=== PATIENT | male | born 1955 | race Native Hawaiian/Other Pacific Islander ===

== ENCOUNTER → 2022-08-22 | Outpatient (CLI) | payer MEDICARE ==
--- NOTE | 2022-08-22 15:49 | US ---
EXAMINATION TYPE: US liver DATE OF EXAM: 08/22/2022 COMPARISON: NONE CLINICAL HISTORY: K74.60 UNSPECIFIED CIRRHOSIS OF LIVER. abnormal ct about 2-3 months ago that showed enlarged liver per pt TECHNIQUE: Multiple sonographic images of the right upper quadrant are obtained. FINDINGS: EXAM MEASUREMENTS: Liver Length: 21.0 cm Gallbladder Wall: 0.2 cm CBD: 0.5 cm Right Kidney: 11.8 x 5.7 x 5.1 cm DIRECTOR RELIGIOUS EDUCATION NOTES:some exam limitations due to overlying bowel gas Pancreas: Visualized portions heterogeneous, but otherwise unremarkable. Tail not well seen. Liver: Liver appears enlarged with a slightly coarsened echotexture. There is a 2.5 x 2.2 x 2.1 cm h ypoechoic solid mass in segment 5 just anterior to the gallbladder. Gallbladder: wnl Evidence for sonographic Rodriguez's sign: no CBD: wnl Right Kidney: wnl IMPRESSION: Hepatomegaly and coarsened liver echotexture. 2.5 cm hypoechoic solid mass within segment 5 anterior to the gallbladder. Single phase CT abdomen and pelvis was performed at [facility] on 01/08/2022 and these images are reviewed. The mass was present at that time. However, the liver demonstrates a cirrhotic m orphology with hepatomegaly and nodular contour. As well, there is evidence of portal hypertension wi th mild splenomegaly and esophageal varices. In addition to hepatology consultation, this mass should be evaluated with a dedicated liver MRI.
== END | disposition home or self-care (01) ==
LOC: RADUSWWP 14:30
PROVIDERS: ATTEND Internal Medicine Gastroenterology
DX: K74.60 Unspecified cirrhosis of liver (principal); R16.2 Hepatomegaly with splenomegaly, not elsewhere classified; I85.10 Secondary esophageal varices without bleeding; K76.6 Portal hypertension
CPT/HCPCS: 76705

== ENCOUNTER → 2022-10-14 | Outpatient (CLI) | payer MEDICARE ==
[2022-10-14 22:43] LABS: Prothrombin Time 11.3 sec (9.9-11.9)
[2022-10-14 23:14] LABS: African American GFR (CKD) 107.1 (60.0-200.0); Albumin 4.5 g/dL (3.8-4.9); Albumin/Globulin Ratio 1.8 (1.60-3.17); BUN/Creat Ratio 15.63 Ratio (12.00-20.00); Blood Urea Nitrogen 12.5 mg/dL (9.0-27.0); Calcium 9.7 mg/dL (8.7-10.3); Globulin 2.5 g/dL (1.6-3.3); Non-African American GFR(CKD) 92.4 (60.0-200.0); Potassium 4.2 mmol/L (3.5-5.5); Total Bilirubin 1.1 mg/dL (0.30-1.20)
[2022-10-15 01:44] LABS: Basophils # (A) 0.09 X 10*3/uL (0.00-0.10); Basophils % (A) 1.3 %; Eosinophils # (A) 0.11 X 10*3/uL (0.04-0.35); Eosinophils % (A) 1.6 %; HCT 39.7 % (39.6-50.0); HGB 12.9 g/dL (13.0-17.0); Immature Grans, Automated 1.7 %; MCH 30.7 pg (27.0-32.0); MCHC 32.5 g/dL (32.0-37.0); MCV 94.5 fL (80.0-97.0); Monocytes # (A) 0.75 X 10*3/uL (0.20-1.00); Monocytes % (A) 10.9 %; NRBC Per 100 WBC 0 /100 WBCS (0.0-0.0); Neutrophils # (A) 4.69 X 10*3/uL (1.80-7.70); Neutrophils % (A) 68.5 %; Platelet Count 60 X 10*3/uL (140-440); RDW 14.6 % (11.5-14.5); WBC 6.86 X 10*3/uL (4.50-10.00)
[2022-10-15 01:46] LABS: Immature Platelet Fraction 23.5 % (1.1-6.1); RBC Morphology NORMAL
== END | disposition home or self-care (01) ==
LOC: LABWHC1 14:15
PROVIDERS: ATTEND Nurse Practitioner Family
DX: K74.60 Unspecified cirrhosis of liver (principal)
CPT/HCPCS: 36415; 80053; 82105; 85025; 85610

== ENCOUNTER → 2023-04-16 | Outpatient (CLI) | payer MEDICARE ==
--- NOTE | 2023-04-16 09:28 | US ---
EXAMINATION TYPE: US liver DATE OF EXAM: 04/16/2023 COMPARISON: US & MRI CLINICAL INDICATION: Male, 67 years old with history of K74.60 UNSPECIFIED CIRRHOSIS OF LIVER; Known Cirrhosis TECHNIQUE: Multiple sonographic images of the right upper quadrant are obtained. 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 Cirrhotic appearance to the liver. 2. Adenomyomatosis of the gallbladder wall with no evidence of cholelithiasis or cholecystitis. 3. No evidence of biliary ductal dilation. 4. No evidence of right-sided hydronephrosis.
== END | disposition home or self-care (01) ==
LOC: RADUSWWP 08:55
PROVIDERS: ATTEND Internal Medicine Gastroenterology
DX: K74.60 Unspecified cirrhosis of liver (principal); K82.8 Other specified diseases of gallbladder
CPT/HCPCS: 76705

== ENCOUNTER → 2023-04-17 | Outpatient (CLI) | payer MEDICARE ==
[2023-04-17 17:01] LABS: Basophils # (A) 0 X 10*3/uL (0.00-0.10); Basophils % (A) 0 %; Elliptocytes 2+; Eosinophils # (A) 0.01 X 10*3/uL (0.04-0.35); Eosinophils % (A) 0.5 %; HCT 27.2 % (39.6-50.0); HGB 8.2 d/dL (13.0-17.0); Immature Platelet Fraction 14.9 % (1.1-6.1); Lymphocytes # (A) 0.78 X 10*3/uL (0.90-5.00); Lymphocytes % (A) 35.9 %; MCH 33.3 pg (27.0-32.0); MCHC 30.1 d/dL (32.0-37.0); MCV 110.6 FL (80.0-97.0); Macrocytosis (M) 2+; Mean Platelet Volume 12.4 FL (9.5-12.2); Monocytes # (A) 0.12 X 10*3/uL (0.20-1.00); Monocytes % (A) 5.5 %; NRBC Per 100 WBC 0 X 10*3/uL (0.00-0.01); Neutrophils # (A) 1.17 X 10*3/uL (1.80-7.70); Platelet Count 52 X 10*3/uL (140-440); RBC 2.46 X 10*6/uL (4.40-5.60); WBC 2.17 X 10*3/uL (4.50-10.00)
[2023-04-17 18:02] LABS: ALT 139 U/L (10-49); AST 175 U/L (14-35); Albumin 4.4 d/dL (3.8-4.9); Alkaline Phosphatase 203 U/L (41-126); BUN/Creat Ratio 21.89 Ratio (12.00-20.00); Blood Urea Nitrogen 19.7 mg/dL (9.0-27.0); Calcium 9.6 mg/dL (8.7-10.3); Carbon Dioxide 21.5 mmol/L (21.6-31.8); Chloride 99 mmol/L (96-109); Globulin 2.2 d/dL (1.6-3.3); Glucose 310 mg/dL (70-110); Potassium 4.8 mmol/L (3.5-5.5); Sodium 132 mmol/L (135-145); Total Bilirubin 1.2 mg/dL (0.3-1.2); Total Protein 6.6 d/dL (6.2-8.2)
== END | disposition home or self-care (01) ==
LOC: LABWHC1 09:55
PROVIDERS: ATTEND Internal Medicine Gastroenterology
DX: K74.60 Unspecified cirrhosis of liver (principal)
CPT/HCPCS: 36415; 80053; 82105; 85025

== ENCOUNTER 2024-06-09 11:19 | Inpatient (IN) | payer MEDICARE ==
[2024-06-09] MEDS ORDERED: ONDANSETRON 4 MG/2 ML VIAL IVP PRN ×2 (16:55→18:24)
[2024-06-09] MEDS ORDERED: ACETAMINOPHEN TAB 325 MG TAB PO PRN (16:55)
[2024-06-09] MEDS ORDERED: NALOXONE 0.4 MG/ML 1 ML VIAL IV PRN (16:55)
[2024-06-09] MEDS ORDERED: ALPRAZolam 0.25 MG TAB PO PRN (20:36)
[2024-06-09] MEDS: TEMAZEPAM 15 MG CAP PO SCH (20:59)
[2024-06-09] MEDS: MULTIVITAMINS, THERA 1 EACH TAB PO SCH (20:59)
[2024-06-09] MEDS: TAMSULOSIN 0.4 MG CAP.ER.24H PO SCH (21:00)
[2024-06-09] MEDS: PANTOPRAZOLE 40 MG TABLET PO SCH (21:00)
[2024-06-10 06:09] LABS: Glucose,Whole Blood 109 mg/dL (70-110)
[2024-06-10 07:32] LABS: Anisocytosis Moderate; HCT 21.4 % (39.0-53.0); Hypochromasia Moderate; MCH 33.7 pg (25.0-35.0); MCHC 32.8 g/dL (31.0-37.0); MCV 102.8 fL (80.0-100.0); Macrocytosis Moderate; Mean Platelet Volume 13.9; Poikilocytosis Marked; RBC 2.08 m/uL (4.30-5.90); RDW 23.8 % (11.5-15.5)
[2024-06-10] MEDS: allopurinoL 300 MG TAB PO SCH (07:58)
[2024-06-10] MEDS: PANTOPRAZOLE 40 MG/10 ML VIAL IVP SCH (07:58)
[2024-06-10] MEDS: THIAMINE 100 MG TAB PO SCH (07:58)
[2024-06-10 08:05] LABS: ALT 67 U/L (4-49); AST 98 U/L (17-59); African American GFR (CKD) >90 (>60 ml/min/1.73 sqM); Albumin 2.2 g/dL (3.5-5.0); Alkaline Phosphatase 171 U/L (38-126); Anion Gap 1 mmol/L; Blood Urea Nitrogen 7 mg/dL (9-20); Calcium 7.5 mg/dL (8.4-10.2); Carbon Dioxide 25 mmol/L (22-30); Chloride 108 mmol/L (98-107); Glucose 121 mg/dL (74-99); Magnesium 1.8 mg/dL (1.6-2.3); Non-African American GFR(CKD) >90 (>60 ml/min/1.73 sqM); Potassium 3.4 mmol/L (3.5-5.1); Sodium 134 mmol/L (137-145); Total Bilirubin 2.7 mg/dL (0.2-1.3); Total Protein 4.4 g/dL (6.3-8.2)
[2024-06-10 08:16] LABS: WBC 0.3 k/uL (3.8-10.6)
[2024-06-10 08:35] LABS: Platelet Count 16 k/uL (150-450)
[2024-06-10 08:36] LABS: Polychromasia Present
[2024-06-10 08:44] LABS: INR 1.1 (<1.2); Prothrombin Time 12.2 sec (10.0-12.5)
[2024-06-10 11:43] LABS: Glucose,Whole Blood 160 mg/dL (70-110)
--- NOTE | 2024-06-10 11:43 | P.CONS ---
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 Apparently patient was at [facility] admitted with anemia. Reportedly general surgery was consulted however declined to do any endoscopic evaluation due to patient's history of liver cirrhosis and esophageal varices. They were recommending transfer to [facility] however there were no beds available. Patient was transferred here and asked if gastroenterology could see patient for possible endoscopy. He states that he has been having black stools for last several days. He denies any abdominal pain, nausea or vomiting. No hematemesis. WBC 0.3 hemoglobin 7.0 platelet count 16,000 sodium 134 potassium 3.4 BUN 7 creatinine 0.5 total bilirubin 2.7 AST 98 ALT 67 alkaline phosphatase 171 Last EGD and colonoscopy done here was on 09/26/2023 for elective upper endoscopy as well as colonoscopy as part of evaluation of cirrhosis of the liver and screening for esophageal varices and screening for colon cancer. Upper endoscopy revealed severe portal hypertensive gastropathy and small esophageal varices. Colonoscopy revealed transverse colon polyp status post polypectomy and scattered sigmoid diverticulosis Review of Systems REVIEW OF SYSTEMS: CARDIOPULMONARY: No chest pain or shortness of breath. Gastrointestinal: Abdominal pain. No nausea or vomiting. No hematemesis, coffee-ground emesis. No rectal bleeding, patient has been reporting black stools. GENITOURINARY: No dysuria or hematuria. MUSCULOSKELETAL: Reports normal range of motion. SKIN: No rashes. No jaundice. ENDOCRINE: No chills, fevers. No excessive weight gain or loss. No polydipsia or polyuria. PSYCHIATRIC: Unremarkable. NEUROLOGY: No change in mental status. Denies dizziness, headache. ENT: Vision unremarkable. CONSTITUTIONAL: No recent weight loss. No fever, chills, night sweats. Past Medical History Past Medical History: Cancer, Hypertension Additional Past Medical History / Comment(s): cirrhosis of liver, skin cancer. , low platelets-follows with Dr. Mensah., BPH, cyst removed from tooth and taking antibiotic for gum infection. Myleopastic dysplasia syndrome History of Any Multi-Drug Resistant Organisms: None Reported Past Surgical History: Prostate Surgery Additional Past Surgical History / Comment(s): green light laser surgery for prostate Past Anesthesia/Blood Transfusion Reactions: No Reported Reaction Past Psychological History: No Psychological Hx Reported Smoking Status: Former smoker Past Alcohol Use History: Daily Additional Past Alcohol Use History / Comment(s): smoked from 10 yrs old till 21 yrs old. drinks 4 beers/day. Past Drug Use History: Marijuana Additional Drug Use History / Comment(s): current marijuana use - Past Family History Sister(s) Family Medical History: Cancer Additional Family Medical History / Comment(s): one sister breast cancer, 2nd sister having testing done. Medications and Allergies Home Medications Medication Instructions Recorded Confirmed Type ALPRAZolam [Xanax] 0.25 mg PO TID PRN 06/09/24 06/09/24 History Ciprofloxacin HCl [Cipro] 500 mg PO DAILY@1500 06/09/24 06/09/24 History Fluconazole [Diflucan] 100 mg PO DAILY@1500 06/09/24 06/09/24 History Folic Acid 1 mg PO DAILY@1500 06/09/24 06/09/24 History Mv-Min/Folic/K1/Lycopen/Lutein 1 tab PO HS@209906/09/24 06/09/24 History [Centrum Silver Men Tablet] Ondansetron [Zofran] 4 - 8 mg PO Q4H PRN 06/09/24 06/09/24 History Pantoprazole [Protonix] 40 mg PO BID@0900,209906/09/24 06/09/24 History Tamsulosin [Flomax] 0.4 mg PO HS@209906/09/24 06/09/24 History Temazepam [Restoril] 15 mg PO HS@209906/09/24 06/09/24 History Thiamine [Vitamin B-1] 100 mg PO DAILY@0900 06/09/24 06/09/24 History allopurinoL [Zyloprim] 300 mg PO DAILY@0900 06/09/24 06/09/24 History Allergies Allergy/AdvReac Type Severity Reaction Status Date / Time finasteride [From Proscar] AdvReac Swelling Verified 06/09/24 17:23 Physical Exam Vitals: Vital Signs Temp Pulse Resp BP Pulse Ox 06/10/24 07:43 101 H 06/10/24 07:41 97.9 F 101 H 18 136/64 06/10/24 04:07 98.1 F 89 20 113/65 98 06/09/24 23:45 97.7 F 90 16 117/67 98 06/09/24 20:40 98.1 F 88 16 133/76 06/09/24 20:00 88 16 06/09/24 16:40 97.5 F L 75 17 121/75 96 Intake and Output 06/09/24 06/10/24 06/10/24 22:59 06:59 14:59 Intake Total 20 Balance 20 Intake: IV 20 Invasive Line 2 20 Other: Voiding Method Toilet Toilet # Voids 1 1 # Bowel Movements 2 Weight 90.045 kg 92.8 kg General appearance: The patient is alert, oriented, appears in no acute distress. HET: Head is normocephalic and atraumatic. Conjunctiva pink. Sclera anicteric. Neck: Supple without lymphadenopathy. Trachea midline. Heart: Regular. Lungs: Equal expansion, normal respiratory effort. Abdomen: Soft, nontender, nondistended. Skin: No rashes. Mild jaundice. Extremities: Normal skin color and turgor. No pedal edema. Neurological: No focal deficits. Alert and oriented x3. Results CBC & Chem 7: 06/10/24 06:58 06/10/24 06:58 Labs: Abnormal Lab Results - Last 24 Hours (Table) 06/10/24 06/10/24 Range/Units 06:58 06:58 WBC 0.3 L* (3.8-10.6) k/uL RBC 2.08 L (4.30-5.90) m/uL Hgb 7.0 L (13.0-17.5) gm/dL Hct 21.4 L (39.0-53.0) % MCV 102.8 H (80.0-100.0) fL RDW 23.8 H (11.5-15.5) % Sodium 134 L (137-145) mmol/L Potassium 3.4 L (3.5-5.1) mmol/L Chloride 108 H (98-107) mmol/L BUN 7 L (9-20) mg/dL Creatinine 0.55 L (0.66-1.25) mg/dL Glucose 121 H (74-99) mg/dL Calcium 7.5 L (8.4-10.2) mg/dL Total Bilirubin 2.7 H (0.2-1.3) mg/dL AST 98 H (17-59) U/L ALT 67 H (4-49) U/L Alkaline Phosphatase 171 H (38-126) U/L Total Protein 4.4 L (6.3-8.2) g/dL Albumin 2.2 L (3.5-5.0) g/dL Assessment and Plan (1) Anemia Narrative/Plan: 68-year-old male with a history of alcohol liver cirrhosis, recent diagnosis of lymphoma, MDS who is getting chemotherapy currently on hold due to chronic anemia and needing multiple transfusions was transferred here with complaints of black stool. History of recent upper endoscopy with reported bleeding ulcer treated at [facility]. Patient is pancytopenic likely secondary to MDS however is also reporting black stools and need to consider possible upper GI bleed with history of recent peptic ulcer disease. Also need to consider possible variceal bleed secondary to portal hypertension. Will plan for upper endoscopy tentatively scheduled for tomorrow. Current Visit: Yes Status: Acute Code(s): D64.9 - ANEMIA, UNSPECIFIED SNOMED Code(s): 306957581 (2) Thrombocytopenia Narrative/Plan: Platelets ordered. Hematology following Current Visit: Yes Status: Acute Code(s): D69.6 - THROMBOCYTOPENIA, UNSPECIFIED SNOMED Code(s): 933909483 (3) Pancytopenia Current Visit: Yes Status: Acute Code(s): D61.818 - OTHER PANCYTOPENIA SNOMED Code(s): 668729235 (4) Alcoholic cirrhosis of liver Current Visit: Yes Status: Acute Code(s): K70.30 - ALCOHOLIC CIRRHOSIS OF LIVER WITHOUT ASCITES SNOMED Code(s): 537831653 (5) Melena Current Visit: Yes Status: Acute Code(s): K92.1 - MELENA SNOMED Code(s): 4560497 Plan: 1. Continue symptomatic and supportive care 2. Daily CBC, transfuse for hemoglobin less than 7 3. Give 1 unit of platelets 4. Await further recommendations from hematology 5. Patient can have clear liquid diet, n.p.o. after midnight 6. Patient tentatively scheduled for upper endoscopy tomorrow Thank you for this consultation, further recommendations forthcoming. Dr. Adi Dominguez I agree with the dictator's note, documented as a scribe by Mary Ann Pressley.
--- NOTE | 2024-06-10 14:35 | P.GSCN ---
History of Present Illness Consult date: 06/10/24 History of present illness: CHIEF COMPLAINT: Anemia HISTORY OF PRESENT ILLNESS: This is a 68-year-old male with a known history of lymphoma and MDS and receiving chemotherapy. Patient scheduled for a port placement on Friday with Dr. Licona. However, he required hospitalization due to anemia. He does have a known history of liver cirrhosis and esophageal varices. Patient had been reporting black stools over the last several days. Patient seen evaluated by GI service and they are planning for endoscopy tomorrow. Patient is receiving platelets. Platelets of 16 PAST MEDICAL HISTORY: cirrhosis of liver, skin cancer. , low platelets-follows with Dr. Allen, BPH, cyst removed from tooth and taking antibiotic for gum infection. Myleopastic dysplasia syndrome PAST SURGICAL HISTORY: Prostate surgery MEDICATIONS: See below ALLERGIES: See below SOCIAL HISTORY: No illicit drug use. Alcohol use, 4 beers daily REVIEW OF SYSTEMS: CONSTITUTIONAL: Denies fever or chills. HEENT: Denies blurred vision, vision changes, or eye pain. Denies hemoptysis CARDIOVASCULAR: Denies chest pain or pressure. RESPIRATORY: No shortness of breath. GASTROINTESTINAL: See HPI for pertinent findings HEMATOLOGIC: Denies bleeding disorders. GENITOURINARY: Denies any blood in urine or increased urinary frequency. SKIN: Denies pruitis. Denies rash. PHYSICAL EXAM: VITAL SIGNS: Reviewed GENERAL: no acute distress. ABDOMEN: Soft. Nondistended. Nontender NEUROLOGIC: Alert and oriented. Cranial nerves II through XII grossly intact. LABORATORY DATA: WBC 0.3 Hgb 7 platelets 16 Sodium 134 potassium 3.4 creatinine 0.55 Magnesium 1.8 total bili 2.7 AST 98 ALT 67 alk phos 171 albumin 2.2 IMAGING: ASSESSMENT: 1. Lymphoma and myelodysplastic syndrome 2. GI bleed with melanotic stools and acute blood loss anemia 3. Pancytopenia PLAN: -Mediport placement scheduled for Friday with Dr. 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 Signing provider agrees with the documented findings, assessment, and plan of care. Past Medical History Past Medical History: Cancer, Hypertension Additional Past Medical History / Comment(s): cirrhosis of liver, skin cancer. , low platelets-follows with Dr. Allen, BPH, cyst removed from tooth and taking antibiotic for gum infection. Myleopastic dysplasia syndrome History of Any Multi-Drug Resistant Organisms: None Reported Past Surgical History: Prostate Surgery Additional Past Surgical History / Comment(s): green light laser surgery for prostate Past Anesthesia/Blood Transfusion Reactions: No Reported Reaction Past Psychological History: No Psychological Hx Reported Smoking Status: Former smoker Past Alcohol Use History: Daily Additional Past Alcohol Use History / Comment(s): smoked from 10 yrs old till 21 yrs old. drinks 4 beers/day. Past Drug Use History: Marijuana Additional Drug Use History / Comment(s): current marijuana use - Past Family History Sister(s) Family Medical History: Cancer Additional Family Medical History / Comment(s): one sister breast cancer, 2nd sister having testing done. Medications and Allergies Home Medications Medication Instructions Recorded Confirmed Type ALPRAZolam [Xanax] 0.25 mg PO TID PRN 06/09/24 06/09/24 History Ciprofloxacin HCl [Cipro] 500 mg PO DAILY@1500 06/09/24 06/09/24 History Fluconazole [Diflucan] 100 mg PO DAILY@1500 06/09/24 06/09/24 History Folic Acid 1 mg PO DAILY@1500 06/09/24 06/09/24 History Mv-Min/Folic/K1/Lycopen/Lutein 1 tab PO HS@209906/09/24 06/09/24 History [Centrum Silver Men Tablet] Ondansetron [Zofran] 4 - 8 mg PO Q4H PRN 06/09/24 06/09/24 History Pantoprazole [Protonix] 40 mg PO BID@0900,209906/09/24 06/09/24 History Tamsulosin [Flomax] 0.4 mg PO HS@209906/09/24 06/09/24 History Temazepam [Restoril] 15 mg PO HS@209906/09/24 06/09/24 History Thiamine [Vitamin B-1] 100 mg PO DAILY@0900 06/09/24 06/09/24 History allopurinoL [Zyloprim] 300 mg PO DAILY@0900 06/09/24 06/09/24 History Allergies Allergy/AdvReac Type Severity Reaction Status Date / Time finasteride [From Proscar] AdvReac Swelling Verified 06/09/24 17:23 Surgical - Exam Vital Signs Temp Pulse Resp BP Pulse Ox 97.5 F L 75 17 121/75 96 06/09/24 16:40 06/09/24 16:40 06/09/24 16:40 06/09/24 16:40 06/09/24 16:40 Results - Labs 06/10/24 06:58 06/10/24 06:58 Abnormal Lab Results - Last 24 Hours (Table) 06/10/24 06/10/24 06/10/24 Range/Units 06:58 06:58 11:41 WBC 0.3 L* (3.8-10.6) k/uL RBC 2.08 L (4.30-5.90) m/uL Hgb 7.0 L (13.0-17.5) gm/dL Hct 21.4 L (39.0-53.0) % MCV 102.8 H (80.0-100.0) fL RDW 23.8 H (11.5-15.5) % Plt Count 16 L* (150-450) k/uL Sodium 134 L (137-145) mmol/L Potassium 3.4 L (3.5-5.1) mmol/L Chloride 108 H (98-107) mmol/L BUN 7 L (9-20) mg/dL Creatinine 0.55 L (0.66-1.25) mg/dL Glucose 121 H (74-99) mg/dL POC Glucose (mg/dL) 160 H (70-110) mg/dL Calcium 7.5 L (8.4-10.2) mg/dL Total Bilirubin 2.7 H (0.2-1.3) mg/dL AST 98 H (17-59) U/L ALT 67 H (4-49) U/L Alkaline Phosphatase 171 H (38-126) U/L Total Protein 4.4 L (6.3-8.2) g/dL Albumin 2.2 L (3.5-5.0) g/dL Diabetes panel 06/10/24 Range/Units 06:58 Sodium 134 L (137-145) mmol/L Potassium 3.4 L (3.5-5.1) mmol/L Chloride 108 H (98-107) mmol/L Carbon Dioxide 25 (22-30) mmol/L BUN 7 L (9-20) mg/dL Creatinine 0.55 L (0.66-1.25) mg/dL Glucose 121 H (74-99) mg/dL Calcium 7.5 L (8.4-10.2) mg/dL AST 98 H (17-59) U/L ALT 67 H (4-49) U/L Alkaline Phosphatase 171 H (38-126) U/L Total Protein 4.4 L (6.3-8.2) g/dL Albumin 2.2 L (3.5-5.0) g/dL Calcium panel 06/10/24 Range/Units 06:58 Calcium 7.5 L (8.4-10.2) mg/dL Albumin 2.2 L (3.5-5.0) g/dL Pituitary panel 06/10/24 Range/Units 06:58 Sodium 134 L (137-145) mmol/L Potassium 3.4 L (3.5-5.1) mmol/L Chloride 108 H (98-107) mmol/L Carbon Dioxide 25 (22-30) mmol/L BUN 7 L (9-20) mg/dL Creatinine 0.55 L (0.66-1.25) mg/dL Glucose 121 H (74-99) mg/dL Calcium 7.5 L (8.4-10.2) mg/dL Adrenal panel 06/10/24 Range/Units 06:58 Sodium 134 L (137-145) mmol/L Potassium 3.4 L (3.5-5.1) mmol/L Chloride 108 H (98-107) mmol/L Carbon Dioxide 25 (22-30) mmol/L BUN 7 L (9-20) mg/dL Creatinine 0.55 L (0.66-1.25) mg/dL Glucose 121 H (74-99) mg/dL Calcium 7.5 L (8.4-10.2) mg/dL Total Bilirubin 2.7 H (0.2-1.3) mg/dL AST 98 H (17-59) U/L ALT 67 H (4-49) U/L Alkaline Phosphatase 171 H (38-126) U/L Total Protein 4.4 L (6.3-8.2) g/dL Albumin 2.2 L (3.5-5.0) g/dL
[2024-06-10] MEDS: CIPROFLOXACIN HCL 500 MG TAB PO SCH (15:32)
[2024-06-10] MEDS: FLUCONAZOLE 100 MG TAB PO SCH (15:32)
[2024-06-10] MEDS: FOLIC ACID 1 MG TAB PO SCH (15:32)
[2024-06-10 16:46] LABS: Glucose,Whole Blood 110 mg/dL (70-110)
[2024-06-10] MEDS ORDERED: Potassium Replacement Protocol 1 EACH MISC MISCELLANE PRN (18:43)
--- NOTE | 2024-06-10 18:47 | P.CONS ---
History of Present Illness - Reason for Consult Consult date: 06/10/24 MDS, severe anemia Requesting physician: Lizette Gamez - Chief Complaint anemia - History of Present Illness Mr. Bishop is a pleasant male recently diagnosed and treated for MDS admitted here for GI work up. Pt was seen in consult initially for thrombocytopenia 2021, work up was neg for any specific pathology. [place] was 2/2 chronic, significant ETOH use for many years. CT AP showed diminished attenuation of the liver, splenomegaly and 14.2 cm, and an isodense mass in the left adrenal 1.1 cm. Patient's peripheral smear was unremarkable other than the mild pancytopenia. The patient subsequently had an LUCHO FIBROSURE test, that gave him a score of 0.87, consistent with cirrhosis. He was followed for a while and plt were in safe range but, never normal. He followed PRN with Heme. He was referred back 11/2022, sched to have surgery for BPH but this was cancelled because platelet counts were 35,000. [place] low counts 2/2 underlying liver disease, as well as ongoing alcohol consumption. The patient was strongly advised to quit alcohol. He was also referred to rheumatology because of persistently possible blood factor. Workup revealed some DJD, but no autoimmune disease. Pt did not f/u as instructed until Apr, cytopenia work up neg, cont on obs, ETOH use vascillated as did his blood counts. Feb 2024 Hgb declined below pt baseline. He required transfusions, CT showed evidence of hepatomegaly and splenomegaly The patient denied any obvious bl eeding. Pt did stop alcohol consumption after his admission to the hospital in 03/20. He was seen in the office subsequently. Bone marrow aspiration biopsy was discussed, but he was reluctant for the same, and it was ultimately decided to see how his blood counts treated with alcohol cessation. He had regular blood draws, which showed only some minor improvement. He was admitted to the hospital in early 05/20, due to GI bleeding and was transferred to [facility]. He received blood transfusion, and had an EGD, with treatment of a bleeding ulcer. Cytology was negative. His CBC showed elevated blasts at 12%. Case was discussed with them, and he had a bone marrow as patient biopsy on 05/11/24, showing atypical 90% marrow cellularity, with dysplastic changes, and 9% blasts, findings c/w MDS, RAEB-2. He was started on treatment and had 5/7 days of vidaza and started venclexta. He was having black stool, Hgb dropped, he went to [facility], his Hgb did not stabilize with transfusions, he received DDAVP, still poor response to transfusions so, he was transferred to [facility] after Dr. Mensah spoke to Dr. Dominguez about adding pt to her outpt endoscopy schedule tomorrow. When seen today pt denies any F, C, N,V, hematemesis, epistaxis, hematuria, hematochezia or melena. Today Hgb was 7. Review of Systems 10 point ROS is neg except as stated in HPI Past Medical History Past Medical History: Cancer, Hypertension Additional Past Medical History / Comment(s): cirrhosis of liver, skin cancer. , low platelets-follows with Dr. Mensah., BPH, cyst removed from tooth and taking antibiotic for gum infection. Myleopastic dysplasia syndrome History of Any Multi-Drug Resistant Organisms: None Reported Past Surgical History: Prostate Surgery Additional Past Surgical History / Comment(s): green light laser surgery for prostate Past Anesthesia/Blood Transfusion Reactions: No Reported Reaction Past Psychological History: No Psychological Hx Reported Smoking Status: Former smoker Past Alcohol Use History: Daily Additional Past Alcohol Use History / Comment(s): smoked from 10 yrs old till 21 yrs old. drinks 4 beers/day. Past Drug Use History: Marijuana Additional Drug Use History / Comment(s): current marijuana use - Past Family History Sister(s) Family Medical History: Cancer Additional Family Medical History / Comment(s): one sister breast cancer, 2nd sister having testing done. Medications and Allergies Home Medications Medication Instructions Recorded Confirmed Type ALPRAZolam [Xanax] 0.25 mg PO TID PRN 06/09/24 06/09/24 History Ciprofloxacin HCl [Cipro] 500 mg PO DAILY@1500 06/09/24 06/09/24 History Fluconazole [Diflucan] 100 mg PO DAILY@149906/09/24 06/09/24 History Folic Acid 1 mg PO DAILY@1500 06/09/24 06/09/24 History Mv-Min/Folic/K1/Lycopen/Lutein 1 tab PO HS@2100 06/09/24 06/09/24 History [Centrum Silver Men Tablet] Ondansetron [Zofran] 4 - 8 mg PO Q4H PRN 06/09/24 06/09/24 History Pantoprazole [Protonix] 40 mg PO BID@0900,2100 06/09/24 06/09/24 History Tamsulosin [Flomax] 0.4 mg PO HS@209906/09/24 06/09/24 History Temazepam [Restoril] 15 mg PO HS@2100 06/09/24 06/09/24 History Thiamine [Vitamin B-1] 100 mg PO DAILY@0900 06/09/24 06/09/24 History allopurinoL [Zyloprim] 300 mg PO DAILY@0900 06/09/24 06/09/24 History Allergies Allergy/AdvReac Type Severity Reaction Status Date / Time finasteride [From Proscar] AdvReac Swelling Verified 06/09/24 17:23 Physical Exam Vitals: Vital Signs Temp Pulse Pulse Resp BP BP Pulse Ox 06/10/24 12:09 98 F 101 H 17 149/82 98 06/10/24 11:49 98 F 96 17 129/77 97 06/10/24 11:22 98.1 F 103 H 17 132/72 06/10/24 07:43 101 H 06/10/24 07:41 97.9 F 101 H 18 136/64 06/10/24 04:07 98.1 F 89 20 113/65 98 06/09/24 23:45 97.7 F 90 16 117/67 98 06/09/24 20:40 98.1 F 88 16 133/76 06/09/24 20:00 88 16 06/09/24 16:40 97.5 F L 75 17 121/75 96 Intake and Output 06/09/24 06/10/24 06/10/24 22:59 06:59 14:59 Intake Total 20 570 Balance 20 570 Intake: IV 20 10 Invasive Line 2 20 10 Oral 560 Blood Product 0 Unit 0 Other: Voiding Method Toilet Toilet Toilet # Voids 1 1 # Bowel Movements 2 Weight 90.045 kg 92.8 kg - Constitutional General appearance: average body habitus, cooperative, no acute distress - EENT Eyes: anicteric sclerae, EOMI ENT: hearing grossly normal, normal oropharynx - Neck Neck: no lymphadenopathy - Respiratory Respiratory: bilateral: CTA - Cardiovascular Rhythm: regular Heart sounds: normal: S1, S2 Abnormal Heart Sounds: no systolic murmur, no diastolic murmur, no rub, no S3 Gallop, no S4 Gallop, no click, no other leg Peripheral Edema: bilateral: None - Gastrointestinal General gastrointestinal: no absent bowel sounds, no decreased bowel sounds, no distended, no hepatomegaly, no hyperactive bowel sounds, normal bowel sounds, no organomegaly, no rigid, no scaphoid, soft, no splenomegaly, no tenderness, no umbilical hernia, no ventral hernia - Neurologic Neurologic: CNII-XII intact - Musculoskeletal Musculoskeletal: strength equal bilaterally - Psychiatric Psychiatric: A&O x's 3, appropriate affect, intact judgment & insight Results CBC & Chem 7: 06/10/24 06:58 06/10/24 06:58 Labs: Abnormal Lab Results - Last 24 Hours (Table) 06/10/24 06/10/24 06/10/24 Range/Units 06:58 06:58 11:41 WBC 0.3 L* (3.8-10.6) k/uL RBC 2.08 L (4.30-5.90) m/uL Hgb 7.0 L (13.0-17.5) gm/dL Hct 21.4 L (39.0-53.0) % MCV 102.8 H (80.0-100.0) fL RDW 23.8 H (11.5-15.5) % Plt Count 16 L* (150-450) k/uL Sodium 134 L (137-145) mmol/L Potassium 3.4 L (3.5-5.1) mmol/L Chloride 108 H (98-107) mmol/L BUN 7 L (9-20) mg/dL Creatinine 0.55 L (0.66-1.25) mg/dL Glucose 121 H (74-99) mg/dL POC Glucose (mg/dL) 160 H (70-110) mg/dL Calcium 7.5 L (8.4-10.2) mg/dL Total Bilirubin 2.7 H (0.2-1.3) mg/dL AST 98 H (17-59) U/L ALT 67 H (4-49) U/L Alkaline Phosphatase 171 H (38-126) U/L Total Protein 4.4 L (6.3-8.2) g/dL Albumin 2.2 L (3.5-5.0) g/dL Assessment and Plan (1) GI bleed Current Visit: Yes Status: Acute Priority: High Code(s): K92.2 - GASTROINTESTINAL HEMORRHAGE, UNSPECIFIED SNOMED Code(s): 01637007 (2) Anemia Current Visit: Yes Status: Acute Priority: High Code(s): D64.9 - ANEMIA, UNSPECIFIED SNOMED Code(s): 819188806 (3) MDS (myelodysplastic syndrome) Current Visit: Yes Status: Acute Priority: Medium Code(s): D46.9 - MYELODYSPLASTIC SYNDROME, UNSPECIFIED SNOMED Code(s): 639754390 Plan: Anemia, suspect GI bleed -Concerns for GI bleeding-pt has Hgb of the same, he was not having appropriate response to multiple units of PRBCs, platelets and DDAVP. -Dr. Mensah did discuss case with Dr. Dominguez, case also discussed with GI SUPERVISOR WEAVING. Platelets being transfused today, unit ordered to be given with procedure tomorrow. Pt was graciously put on Dr. Dominguez's outpt endo sched -Transfuse for Hgb <7 -Transfuse platelets <10,000 or if symptomatic, which pt has been so, no specific goal number in mind, want bleeding to stop -No acute intervention for low WBC-2/2 treatment -elevated LFTs adn bili likely 2/2 multiple units of PRBCs that were transfused at [facility] MDS RAEB-2 -pt just started treatment last week -holding treatment for right now attests: I have seen and examined pt, performed H&P, developed impression and plan of care. Discussed with dictator, Agree with dictation, documented as a scribe.
[2024-06-10] MEDS: POTASSIUM CHLORIDE ER 20 MEQ TAB.ER PO ONE (18:56)
[2024-06-10 20:20] LABS: Glucose,Whole Blood 118 mg/dL (70-110)
--- NOTE | 2024-06-11 03:08 | HP ---
HISTORY AND PHYSICAL CHIEF COMPLAINT: Anemia. HISTORY OF PRESENT ILLNESS: This is a 68-year-old gentleman with a past medical history of multiple medical problems including MDS, on chemotherapy, was having anemia and thrombocytopenia. The patient was recently admitted to [facility]. The patient also had recently complicated medical history, being followed at [facility] also. The patient apparently had bleeding ulcer. The patient was also diagnosed with a low-grade B-cell lymphoma as well. The patient came to [facility] and because he had transfusion, his hemoglobin was noted increasing. The patient also had right abdominal hematoma, possibly with thrombocytopenia also. The patient was also given platelet transfusions. The patient was transferred to Dr. Mensah and subsequently to Dr. Dominguez and the patient was transferred for possible endoscopies at this time. There is no history of any fever, rigors, or chills. PAST MEDICAL HISTORY: History of hypertension, history of cirrhosis, history of multiple myeloma, dose and rest of history is noted. HOME MEDICATIONS: Noted include Zofran, doses and rest of medications noted. ALLERGIES: Finasteride. FAMILY HISTORY: History of cancer in the family. SOCIAL HISTORY: Previous history of smoking. Alcohol daily. REVIEW OF SYSTEMS: Fourteen-point review is negative except as mentioned earlier. PHYSICAL EXAMINATION: VITAL SIGNS: Pulse 101, blood pressure 149/82, respirations 17. HEENT: Conjunctivae normal. NECK: No JVD. CARDIOVASCULAR: S1, S2. RESPIRATIONS: Breath sounds diminished at the bases. No rhonchi. No crackles. ABDOMEN: Soft, nontender. No masses. LEGS: No edema. NERVOUS SYSTEM: Nonfocal. LABORATORY DATA: WBC ntd, hemoglobin 7, platelets 16. Labs are noted. ASSESSMENT: 1. Severe anemia, multifactorial, rule out acute GI blood loss anemia for possible endoscopy. 2. Myelodysplastic syndrome, on chemotherapy. 3. B-cell lymphoma and bleeding gastric ulcer recently evaluated in [facility]. 4. Severe pancytopenia and thrombocytopenia. 5. Right abdominal wall hematoma secondary to thrombocytopenia. 6. Hyponatremia. 7. Hypokalemia. 8. Hypertension. 9. History of cirrhosis of liver. 10.History of nicotine dependence. 11.History of EtOH. RECOMMENDATIONS AND DISCUSSION: This is a 68-year-old gentleman, who presented with multiple complex medical issues, we will monitor the patient closely. Continue the current medications, continue symptomatic treatment. Recommend evaluation by Hematology, Oncology, possible platelet transfusion, endoscopes, proton pump inhibitors, symptomatic treatment. Prognosis guarded. Further recommendations to follow. See orders for further details. MMODL / IJN: [id number] / MTDD
[2024-06-11 06:17] LABS: Glucose,Whole Blood 128 mg/dL (70-110)
[2024-06-11 06:38] LABS: Anisocytosis Marked; HCT 22.5 % (39.0-53.0); HGB 7.2 gm/dL (13.0-17.5); Hypochromasia Marked; MCH 33.4 pg (25.0-35.0); MCV 104.5 fL (80.0-100.0); Macrocytosis Marked; Mean Platelet Volume 12.9; Poikilocytosis Marked; RBC 2.16 m/uL (4.30-5.90); RDW 24.8 % (11.5-15.5)
[2024-06-11 06:41] LABS: Platelet Count 16 k/uL (150-450); WBC 0.4 k/uL (3.8-10.6)
[2024-06-11 07:49] LABS: African American GFR (CKD) >90 (>60 ml/min/1.73 sqM); Anion Gap 2 mmol/L; Blood Urea Nitrogen 5 mg/dL (9-20); Calcium 7.7 mg/dL (8.4-10.2); Carbon Dioxide 24 mmol/L (22-30); Chloride 110 mmol/L (98-107); Glucose 105 mg/dL (74-99); Non-African American GFR(CKD) >90 (>60 ml/min/1.73 sqM); Potassium 3.6 mmol/L (3.5-5.1); Sodium 136 mmol/L (137-145)
[2024-06-11] MEDS ORDERED: PROPOFOL 10 MG/ML 20 ML VIAL IV ONE (07:56)
[2024-06-11] MEDS ORDERED: LIDOCAINE 1% INJ 10MG/ML (20 ML MDV) ONE (07:56)
[2024-06-11] MEDS: IV FLUID CONTINUATION 1,000 ML IV ONE (07:57)
--- NOTE | 2024-06-11 08:14 | P.PCN ---
Date of Procedure: 06/11/24 Procedure(s) Performed: BRIEF HISTORY: Patient is a 68-year-old, pleasant, male with history of alcoholic cirrhosis of the liver and recently diagnosed with myelodysplastic syndrome for which she is undergoing chemotherapy. He was admitted to [facility] with severe symptomatic anemia requiring blood transfusions and intermittent black tarry stools. The patient had an EGD at [facility] in April 2024 which revealed a nonbleeding clean-based antral ulcer in the prepyloric area and apparently biopsies revealed low-grade lymphoma. The colon requested to repeat an upper endoscopy to see for nonhealing gastric ulcer and if so consider radiation therapy and also rule out other source of upper GI bleed. PROCEDURE PERFORMED: Esophagogastroduodenoscopy. PREOPERATIVE DIAGNOSIS: Symptomatic anemia/melena/recently diagnosed gastric antral ulcer biopsies of which revealed low-grade lymphoma. IV sedation per anesthesia. PROCEDURE: After informed consent was obtained, the patient was brought into the endoscopy unit. IV sedation was administered by Anesthesia under continuous monitoring. Initially the Olympus GIF-140 video endoscope was inserted into the mouth. Esophagus intubated without any difficulty. It was gradually advanced into the stomach and duodenum and carefully examined. The bulb and the second part of the duodenum appeared normal. The scope at this time was withdrawn to the stomach, adequately insufflated with air, and upon careful examination, mucosa of the antrum, had an abnormal appearing mucosa which measured approximate 3 cm in size with the mucosa appeared very nodular and bumpy and a small superficial ulceration with no active bleeding. Biopsies were not done from this area because of severe thrombocytopenia. Mucosa of the body, cardia and the fundus had congested appearing mucosa that was friable all consistent with moderate to severe portal hypertensive gastropathy. The scope was then withdrawn into the esophagus. The GE junction was located at 39 cm from the incisors. Small distal esophageal varices noted. The rest of the esophagus appeared normal. There were no erosions or ulcerations seen and the patient tolerated the procedure well. IMPRESSION: 1. 3 cm area of nodular, bumpy appearing mucosa in the antrum of the stomach with superficial ulceration and no active bleeding.(This probably corresponds to lymphoma that was diagnosed on biopsies a month ago) 2. Moderate to severe portal hypertensive gastropathy involving the body cardia and fundus of the stomach 3. Small nonbleeding esophageal varices. 4. No active upper GI bleed RECOMMENDATIONS: The findings of this examination were discussed with the patient as well as his family.. Findings will be discussed with Dr. Mensah. Advance to regular diet.
[2024-06-11 08:24] LABS: Polychromasia Present; Spherocytes Present
[2024-06-11 11:40] LABS: Glucose,Whole Blood 210 mg/dL (70-110)
--- NOTE | 2024-06-11 13:43 | P.PN ---
Subjective Progress Note Date: 06/11/24 SURGICAL PROGRESS NOTE CHIEF COMPLAINT: Anemia HISTORY OF PRESENT ILLNESS: Patient had EGD today with Dr. Doshi that reported a nodular bumper appearing mucosa in the antrum of the stomach with superficial ulceration no active bleeding, moderate to severe portal hypertensive gastropathy. Small nonbleeding esophageal varices. No active upper GI bleed. Patient is receiving platelets for thrombocytopenia. WBC 0.4 Hgb 7.2 platelets 16 PHYSICAL EXAM: VITAL SIGNS: Reviewed. GENERAL: Well-developed in no acute distress. ABDOMEN: Soft. Nondistended. Nontender. NEUROLOGIC: Alert and oriented. Cranial nerves II through XII grossly intact. ASSESSMENT: 1. Lymphoma and myelodysplastic syndrome 2. Anemia status post EGD 3. Pancytopenia PLAN: -Patient scheduled for Mediport placement on Friday with Dr. Licona -Platelets ordered for Friday prior to procedure Physician Word Processing Operator note has been reviewed by physician. Signing provider agrees with the documented findings, assessment, and plan of care. Objective - Vital Signs Vital signs: Vital Signs Temp 97.6 F 06/11/24 11:09 Pulse 101 H 06/11/24 11:09 Resp 20 06/11/24 11:09 BP 132/61 06/11/24 11:09 Pulse Ox 98 06/11/24 11:09 FiO2 Intake & Output 06/10/24 06/11/24 06/11/24 18:59 06:59 18:59 Intake Total 2185 490 386 Balance 2185 490 386 Weight 92.8 kg Intake: IV 20 10 100 Invasive Line 2 20 10 Oral 1897 480 Blood Product 268 286 Platelet Pheresis Pas 286 Psoralen Unit [id number] Platelet Pheresis Pas 268 Psoralen Unit [id number] Other: Voiding Method Toilet Toilet Toilet # Voids 0 3 3 # Bowel Movements 4 - Labs CBC & Chem 7: 06/11/24 05:29 06/11/24 05:29 Labs: Abnormal Lab Results - Last 24 Hours (Table) 06/10/24 06/11/24 06/11/24 Range/Units 20:18 05:29 05:29 WBC 0.4 L* (3.8-10.6) k/uL RBC 2.16 L (4.30-5.90) m/uL Hgb 7.2 L (13.0-17.5) gm/dL Hct 22.5 L (39.0-53.0) % MCV 104.5 H (80.0-100.0) fL RDW 24.8 H (11.5-15.5) % Plt Count 16 L* (150-450) k/uL Macrocytosis Marked A Sodium 136 L (137-145) mmol/L Chloride 110 H (98-107) mmol/L BUN 5 L (9-20) mg/dL Creatinine 0.58 L (0.66-1.25) mg/dL Glucose 105 H (74-99) mg/dL POC Glucose (mg/dL) 118 H (70-110) mg/dL Calcium 7.7 L (8.4-10.2) mg/dL 06/11/24 06/11/24 Range/Units 06:03 11:39 WBC (3.8-10.6) k/uL RBC (4.30-5.90) m/uL Hgb (13.0-17.5) gm/dL Hct (39.0-53.0) % MCV (80.0-100.0) fL RDW (11.5-15.5) % Plt Count (150-450) k/uL Macrocytosis Sodium (137-145) mmol/L Chloride (98-107) mmol/L BUN (9-20) mg/dL Creatinine (0.66-1.25) mg/dL Glucose (74-99) mg/dL POC Glucose (mg/dL) 128 H 210 H (70-110) mg/dL Calcium (8.4-10.2) mg/dL
[2024-06-11 16:32] LABS: Glucose,Whole Blood 203 mg/dL (70-110)
[2024-06-11] MEDS: INSULIN ASPART (NovoLOG) 100 UNIT/ML VIAL SQ SCH (16:59)
[2024-06-11] MEDS: SUCRALFATE 1 GM TAB PO SCH (17:00)
--- NOTE | 2024-06-11 17:14 | P.PN ---
Subjective Progress Note Date: 06/11/24 The patient feels somewhat fatigued, but denies new complaints otherwise. No obvious bleeding. There may be some increased petechiae on his right abdominal wall. Appetite is fair. No fever/chills/nausea/vomiting Objective - Vital Signs Vital signs: Vital Signs Temp 98.2 F 06/11/24 15:04 Pulse 95 06/11/24 15:04 Resp 16 06/11/24 15:04 BP 114/62 06/11/24 15:04 Pulse Ox 97 06/11/24 15:04 FiO2 Intake & Output 06/10/24 06/11/24 06/11/24 18:59 06:59 18:59 Intake Total 2185 490 386 Balance 2185 490 386 Weight 92.8 kg Intake: IV 20 10 100 Invasive Line 2 20 10 Oral 1897 480 Blood Product 268 286 Platelet Pheresis Pas 286 Psoralen Unit [id number] Platelet Pheresis Pas 268 Psoralen Unit [id number] Other: Voiding Method Toilet Toilet Toilet # Voids 0 3 3 # Bowel Movements 4 - Constitutional General appearance: Present: no acute distress - EENT Eyes: Present: EOMI ENT: Present: hearing grossly normal, normal oropharynx - Respiratory Respiratory: bilateral: CTA - Cardiovascular Rhythm: regular Heart sounds: normal: S1, S2 - Gastrointestinal General gastrointestinal: Present: distended, soft - Integumentary Integumentary Comment(s): Scattered bruises and petechiae, prominent right abdominal wall - Neurologic Neurologic: Present: CNII-XII intact - Musculoskeletal Musculoskeletal: Present: generalized weakness, strength equal bilaterally - Psychiatric Psychiatric: Present: A&O x's 3, appropriate affect - Labs CBC & Chem 7: 06/11/24 05:29 06/11/24 05:29 Labs: Abnormal Lab Results - Last 24 Hours (Table) 06/10/24 06/11/24 06/11/24 Range/Units 20:18 05:29 05:29 WBC 0.4 L* (3.8-10.6) k/uL RBC 2.16 L (4.30-5.90) m/uL Hgb 7.2 L (13.0-17.5) gm/dL Hct 22.5 L (39.0-53.0) % MCV 104.5 H (80.0-100.0) fL RDW 24.8 H (11.5-15.5) % Plt Count 16 L* (150-450) k/uL Macrocytosis Marked A Sodium 136 L (137-145) mmol/L Chloride 110 H (98-107) mmol/L BUN 5 L (9-20) mg/dL Creatinine 0.58 L (0.66-1.25) mg/dL Glucose 105 H (74-99) mg/dL POC Glucose (mg/dL) 118 H (70-110) mg/dL Calcium 7.7 L (8.4-10.2) mg/dL 06/11/24 06/11/24 06/11/24 Range/Units 06:03 11:39 16:30 WBC (3.8-10.6) k/uL RBC (4.30-5.90) m/uL Hgb (13.0-17.5) gm/dL Hct (39.0-53.0) % MCV (80.0-100.0) fL RDW (11.5-15.5) % Plt Count (150-450) k/uL Macrocytosis Sodium (137-145) mmol/L Chloride (98-107) mmol/L BUN (9-20) mg/dL Creatinine (0.66-1.25) mg/dL Glucose (74-99) mg/dL POC Glucose (mg/dL) 128 H 210 H 203 H (70-110) mg/dL Calcium (8.4-10.2) mg/dL Assessment and Plan (1) GI bleed Narrative/Plan: The patient had his EGD today, with platelet transfusions. The findings were discussed in detail with GI. He was found to have antral ulcer with underlying mucosal abnormality. The site was previously seen and biopsied, revealing a low-grade lymphoma. This appeared to be stable, and the ulcer was fairly shallow. In addition the patient had extensive portal gastropathy with hyperemia and congestion of the gastric mucosa. It was felt by GI that the portal gastropathy was probably the more likely site of his blood loss, due to oozing from multiple sites when his platelets are low. However blood loss from the ulcer remains a possibility. -Possible management options were discussed with GI. They confirmed that portal gastropathy is typically difficult to treat. They will consider trying propranolol to reduce portal hypertension. The patient will be referred to radiation oncology as an outpatient for short course of radiation to the area of the ulcer to try to reduce risk of bleeding from that site. In addition we will plan on being more aggressive with platelet transfusions, and use a threshold of 15-20 than the usual 10,000. Current Visit: Yes Status: Acute Priority: High Code(s): K92.2 - GASTROINTESTINAL HEMORRHAGE, UNSPECIFIED SNOMED Code(s): 99313246 (2) MDS (myelodysplastic syndrome) Narrative/Plan: The patient's treatment is currently on hold because of the severe anemia, a major component of which appears to be due to GI bleed. Results of his EGD, and plans as noted above. Hopefully with the above if hemoglobin can be stabilized in a safer range, treatment for his myelodysplasia will be resumed. Current Visit: Yes Status: Acute Priority: Medium Code(s): D46.9 - MYELODYSPLASTIC SYNDROME, UNSPECIFIED SNOMED Code(s): 984979230 (3) Pancytopenia Narrative/Plan: Due to myelodysplastic syndrome, and effects of treatment. Management plan as noted above Current Visit: Yes Status: Acute Code(s): D61.818 - OTHER PANCYTOPENIA SNOMED Code(s): 986571801 Plan: The patient's hemoglobin has actually been more stable, over the last couple of days, above 7. At this time the plan is for him to have a port placement on 06/14/2024. He will require platelet transfusions to be given at the time of the procedure
[2024-06-11 20:53] LABS: Glucose,Whole Blood 233 mg/dL (70-110)
[2024-06-12 06:16] LABS: Glucose,Whole Blood 177 mg/dL (70-110)
--- NOTE | 2024-06-12 07:12 | PN ---
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 The patient underwent EGD by Dr. Dominguez, which showed 3 cm nodular bumpy mucosa with superficial ulceration, but no active bleeding, possibly secondary to lymphoma and moderate severe portal hypertensive gastropathy, small nonbleeding esophageal varices. The patient is being closely monitored at this time. The patient has received 3 units of transfusion. Hemoglobin is improved to 7 today. The patient had pancytopenia as well. PAST MEDICAL HISTORY: Reviewed. REVIEW OF SYSTEMS: Fourteen point review of systems is negative except as mentioned earlier. CURRENT MEDICATIONS: Reviewed. PHYSICAL EXAMINATION: VITAL SIGNS: Pulse is 104, blood pressure 140/70, respirations 16. HEENT: Conjunctivae pale. Oral mucosa moist. CARDIOVASCULAR: S1, S2. RESPIRATIONS: Clear to auscultation. ABDOMEN: Soft, obese. LEGS: No edema. NERVOUS SYSTEM: Nonfocal. LABORATORY DATA: WBC ntd. Rest of the labs are noted. ASSESSMENT: 1. Severe anemia, multifactorial including upper GI bleeding with status post EGD showing superficial ulceration with nodules. 2. Moderate severe portal hypertensive gastropathy involving the cardia and fundus of the stomach in the EGD. 3. Small nonbleeding esophageal varices in the EGD. 4. Pancytopenia secondary to MDS, on chemotherapy. 5. B-cell lymphoma and bleeding gastric ulcer recently at [facility]. 6. Thrombocytopenia. 7. Right abdominal wall hematoma secondary to thrombocytopenia. 8. Hyponatremia. 9. Hypokalemia. 10.History of cirrhosis of liver. 11.History of EtOH. 12.Multiple complex medical issues. 13.Full code. RECOMMENDATIONS AND DISCUSSION: This is a 68-year-old gentleman presented with multiple complex medical issues. We will monitor the patient closely. Continue current medications. Repeat labs. The patient is slated to have a port also placed. Otherwise, closely follow with Hematology, Oncology. Resume the home medications. Proton pump inhibitors. Guarded prognosis because of multiple complex medical issues. Further recommendations to follow. See orders for further details. MMODL / IJN: [id number] / MTDD
[2024-06-12 07:49] LABS: Anisocytosis Marked; HCT 22.3 % (39.0-53.0); Hypochromasia Marked; MCH 33.3 pg (25.0-35.0); MCHC 31.2 g/dL (31.0-37.0); MCV 106.8 fL (80.0-100.0); Macrocytosis Marked; Mean Platelet Volume 12.6; Poikilocytosis Marked; RBC 2.09 m/uL (4.30-5.90); RDW 24.5 % (11.5-15.5)
[2024-06-12 07:51] LABS: Platelet Count 14 k/uL (150-450); WBC 0.4 k/uL (3.8-10.6)
[2024-06-12 07:53] LABS: HGB 6.9 gm/dL (13.0-17.5)
[2024-06-12 07:55] LABS: African American GFR (CKD) >90 (>60 ml/min/1.73 sqM); Anion Gap 4 mmol/L; Blood Urea Nitrogen 7 mg/dL (9-20); Calcium 7.7 mg/dL (8.4-10.2); Carbon Dioxide 26 mmol/L (22-30); Chloride 106 mmol/L (98-107); Glucose 146 mg/dL (74-99); Non-African American GFR(CKD) >90 (>60 ml/min/1.73 sqM); Potassium 3.7 mmol/L (3.5-5.1); Sodium 136 mmol/L (137-145)
[2024-06-12 08:43] LABS: Polychromasia Present
[2024-06-12 12:00] LABS: Glucose,Whole Blood 172 mg/dL (70-110)
[2024-06-12] MEDS: POTASSIUM CHLORIDE ER 20 MEQ TAB.ER PO STA (12:26)
--- NOTE | 2024-06-12 14:20 | P.PN ---
Subjective Progress Note Date: 06/12/24 NAEON. No N/V. No F/C. No SOB or CP. Tolerating diet. Objective - Vital Signs Vital signs: Vital Signs Temp 98.7 F 06/12/24 12:29 Pulse 98 06/12/24 11:55 Resp 18 06/12/24 11:55 BP 151/71 06/12/24 11:55 Pulse Ox 99 06/12/24 11:55 FiO2 Intake & Output 06/11/24 06/12/24 06/12/24 18:59 06:59 18:59 Intake Total 858 10 604 Balance 858 10 604 Weight 90.4 kg Intake: IV 100 10 10 Invasive Line 2 10 10 Oral 472 594 Blood Product 286 Platelet Pheresis Pas 286 Psoralen Unit [id number] Other: Voiding Method Toilet Toilet Toilet # Voids 1 1 # Bowel Movements 2 1 - Exam Gen: AxO, NAD Pulm: non-labored respirations Abd: soft, non-tender, non-distended Extrem: no edema seen - Labs CBC & Chem 7: 06/12/24 06:44 06/12/24 06:44 Labs: Abnormal Lab Results - Last 24 Hours (Table) 06/11/24 06/11/24 06/12/24 Range/Units 16:30 20:51 06:14 WBC (3.8-10.6) k/uL RBC (4.30-5.90) m/uL Hgb (13.0-17.5) gm/dL Hct (39.0-53.0) % MCV (80.0-100.0) fL RDW (11.5-15.5) % Plt Count (150-450) k/uL Macrocytosis Sodium (137-145) mmol/L BUN (9-20) mg/dL Creatinine (0.66-1.25) mg/dL Glucose (74-99) mg/dL POC Glucose (mg/dL) 203 H 233 H 177 H (70-110) mg/dL Calcium (8.4-10.2) mg/dL 06/12/24 06/12/24 06/12/24 Range/Units 06:44 06:44 11:58 WBC 0.4 L* (3.8-10.6) k/uL RBC 2.09 L (4.30-5.90) m/uL Hgb 6.9 L* (13.0-17.5) gm/dL Hct 22.3 L (39.0-53.0) % MCV 106.8 H (80.0-100.0) fL RDW 24.5 H (11.5-15.5) % Plt Count 14 L* (150-450) k/uL Macrocytosis Marked A Sodium 136 L (137-145) mmol/L BUN 7 L (9-20) mg/dL Creatinine 0.58 L (0.66-1.25) mg/dL Glucose 146 H (74-99) mg/dL POC Glucose (mg/dL) 172 H (70-110) mg/dL Calcium 7.7 L (8.4-10.2) mg/dL Microbiology - Last 24 Hours (Table) 06/10/24 17:08 Blood Culture - Preliminary Blood Assessment and Plan Assessment: 68M with PMH lymphoma with need for mediport placement Plan: -Diet as tolerated; NPO at midnight on 06/13 -PRN pain and nausea control -Care per primary -Plan for mediport on 06/14 with need Plt transfusion prior to mediport placement secondary to thrombocytopenia Narayan Morrison M.D. General Surgery
[2024-06-12 16:31] LABS: Glucose,Whole Blood 158 mg/dL (70-110)
[2024-06-12] MEDS ORDERED: Magnesium Replacement Protocol 1 EACH MISC MISCELLANE PRN (18:10)
[2024-06-12] MEDS ORDERED: MAGNESIUM SULFATE-D5W PMX 1 GM in DEXTROSE/WATER 1 100ML.BAG IVPB SCH (18:30)
[2024-06-12 20:14] LABS: Glucose,Whole Blood 141 mg/dL (70-110)
--- NOTE | 2024-06-13 02:32 | PN ---
PROGRESS NOTE DATE OF SERVICE: 06/12/2024 SUBJECTIVE: This is a 68-year-old gentleman admitted with MDS and also had a gastric B-cell lymphoma. Also, the patient is being closely monitored. Port placement is being planned on Friday. No chest pain. No palpitation. PAST MEDICAL HISTORY: Reviewed. REVIEW OF SYSTEMS: A 14-point review is negative except as mentioned earlier CURRENT MEDICATIONS: Reviewed. PHYSICAL EXAMINATION: VITAL SIGNS: Pulse is 98, blood pressure 151/70, respirations 18. CHEST: Clear to auscultation. ABDOMEN: Soft, nontender. LABORATORY DATA: WBCntd, hemoglobin 6.2, platelets are 14. ASSESSMENT: 1. Severe anemia, multifactorial including upper GI bleeding, status post EGD showing multiple superficial ulceration with nodules. 2. Moderate severe portal hypertensive gastropathy involving the cardia and fundus of the stomach in the EGD. 3. Small nonbleeding esophageal varices in the EGD. 4. Pancytopenia secondary to MDS, on chemo. 5. B-cell lymphoma and bleeding gastric ulcer recently at [facility]. 6. Thrombocytopenia. 7. Right abdominal wall hematoma secondary to thrombocytopenia. 8. Multiple complex medical issues. RECOMMENDATIONS AND DISCUSSION: Recommend to continue current management. Continue symptomatic treatment. The patient had significant pancytopenia. Hemoglobin 6.9. We will continue to monitor. Repeat labs. The patient might require further platelets on Friday evening or Friday morning just before the procedure. We will closely follow with Hematology, Oncology and Surgery. Further recommendations to follow. MMODL / IJN: [id number] / MTDD
[2024-06-13 06:24] LABS: Glucose,Whole Blood 141 mg/dL (70-110)
[2024-06-13 07:35] LABS: Anisocytosis Marked; HCT 24.6 % (39.0-53.0); HGB 7.4 gm/dL (13.0-17.5); Hypochromasia Marked; MCH 32.2 pg (25.0-35.0); MCV 107.3 fL (80.0-100.0); Macrocytosis Marked; Mean Platelet Volume 13.2; Poikilocytosis Marked; RBC 2.29 m/uL (4.30-5.90); RDW 24.8 % (11.5-15.5)
[2024-06-13 07:40] LABS: Platelet Count 11 k/uL (150-450); WBC 0.5 k/uL (3.8-10.6)
[2024-06-13 07:51] LABS: ALT 51 U/L (4-49); AST 50 U/L (17-59); African American GFR (CKD) >90 (>60 ml/min/1.73 sqM); Albumin 2.6 g/dL (3.5-5.0); Alkaline Phosphatase 186 U/L (38-126); Anion Gap 2 mmol/L; Blood Urea Nitrogen 9 mg/dL (9-20); Calcium 8.1 mg/dL (8.4-10.2); Carbon Dioxide 28 mmol/L (22-30); Chloride 106 mmol/L (98-107); Glucose 111 mg/dL (74-99); Non-African American GFR(CKD) >90 (>60 ml/min/1.73 sqM); Potassium 4.1 mmol/L (3.5-5.1); Sodium 136 mmol/L (137-145); Total Bilirubin 2.1 mg/dL (0.2-1.3); Total Protein 4.8 g/dL (6.3-8.2)
[2024-06-13 08:29] LABS: Polychromasia Present; Spherocytes Present
[2024-06-13 11:23] LABS: Glucose,Whole Blood 177 mg/dL (70-110)
--- NOTE | 2024-06-13 12:05 | P.PN ---
Subjective Progress Note Date: 06/13/24 Patient is scheduled for Port-A-Cath placement tomorrow. His platelets are currently 11. He will be receiving platelets today. We will also check his platelets prior to surgery. Objective - Vital Signs Vital signs: Vital Signs Temp 98.1 F 06/13/24 00:00 Pulse 90 06/13/24 02:00 Resp 20 06/13/24 02:00 BP 128/68 06/13/24 00:00 Pulse Ox 99 06/13/24 00:00 FiO2 Intake & Output 06/12/24 06/13/24 06/13/24 18:59 06:59 18:59 Intake Total 604 480 240 Balance 604 480 240 Weight 88.9 kg Intake: IV 10 Invasive Line 2 10 Oral 594 480 240 Other: Voiding Method Toilet Toilet # Voids 1 3 # Bowel Movements 1 - Labs CBC & Chem 7: 06/13/24 06:52 06/13/24 06:52 Labs: Abnormal Lab Results - Last 24 Hours (Table) 06/12/24 06/12/24 06/13/24 Range/Units 16:29 20:12 06:23 WBC (3.8-10.6) k/uL RBC (4.30-5.90) m/uL Hgb (13.0-17.5) gm/dL Hct (39.0-53.0) % MCV (80.0-100.0) fL MCHC (31.0-37.0) g/dL RDW (11.5-15.5) % Plt Count (150-450) k/uL Macrocytosis Sodium (137-145) mmol/L Creatinine (0.66-1.25) mg/dL Glucose (74-99) mg/dL POC Glucose (mg/dL) 158 H 141 H 141 H (70-110) mg/dL Calcium (8.4-10.2) mg/dL Total Bilirubin (0.2-1.3) mg/dL ALT (4-49) U/L Alkaline Phosphatase (38-126) U/L Total Protein (6.3-8.2) g/dL Albumin (3.5-5.0) g/dL 06/13/24 06/13/24 06/13/24 Range/Units 06:52 06:52 11:22 WBC 0.5 L* (3.8-10.6) k/uL RBC 2.29 L (4.30-5.90) m/uL Hgb 7.4 L (13.0-17.5) gm/dL Hct 24.6 L (39.0-53.0) % MCV 107.3 H (80.0-100.0) fL MCHC 30.0 L (31.0-37.0) g/dL RDW 24.8 H (11.5-15.5) % Plt Count 11 L* (150-450) k/uL Macrocytosis Marked A Sodium 136 L (137-145) mmol/L Creatinine 0.65 L (0.66-1.25) mg/dL Glucose 111 H (74-99) mg/dL POC Glucose (mg/dL) 177 H (70-110) mg/dL Calcium 8.1 L (8.4-10.2) mg/dL Total Bilirubin 2.1 H (0.2-1.3) mg/dL ALT 51 H (4-49) U/L Alkaline Phosphatase 186 H (38-126) U/L Total Protein 4.8 L (6.3-8.2) g/dL Albumin 2.6 L (3.5-5.0) g/dL Microbiology - Last 24 Hours (Table) 06/10/24 17:08 Blood Culture - Preliminary Blood
--- NOTE | 2024-06-13 15:58 | XR ---
EXAMINATION TYPE: XR chest 1V portable DATE OF EXAM: 06/13/2024 3:47 PM COMPARISON: None available. CLINICAL INDICATION: Male, 68 years old with history of chf; [facility] TECHNIQUE: XR chest 1V portable Frontal view of the chest. FINDINGS: Cardiomegaly and trace pulmonary vascular congestion. A final sizable pleural effusion. No acute foca l consolidation. No appreciable pneumothorax. No acute osseous abnormality. IMPRESSION: Cardiomegaly and trace pulmonary vascular congestive changes. No sizable pleural effusion. [facility], , 06/13/2024 3:56 PM
[2024-06-13 16:28] LABS: Glucose,Whole Blood 151 mg/dL (70-110)
[2024-06-13 20:33] LABS: Glucose,Whole Blood 211 mg/dL (70-110)
--- NOTE | 2024-06-14 04:09 | PN ---
PROGRESS NOTE DATE OF SERVICE: 06/13/2024 SUBJECTIVE: This 68-year-old gentleman admitted with severe anemia and MDS acute exacerbation, also had a gastric lymphoma as well. Multiple consultants are following the patient closely. Dr. Licona is planning port placement. The platelets have been 11 at this time and it showed approximately dropped from 16. No chest pain. No palpitations. PAST MEDICAL HISTORY: 14-point review is negative except as mentioned earlier. CURRENT MEDICATIONS: Reviewed. PHYSICAL EXAMINATION: VITAL SIGNS: Pulse is 97, blood pressure 146/97, respirations 16. HEENT: Conjunctivae normal. NECK: No JVD. CARDIOVASCULAR: S1, S2. RESPIRATIONS: Breath sounds diminished at the bases. ABDOMEN: Soft. LEGS: No edema. NERVOUS SYSTEM: Nonfocal. LABORATORY DATA: Reviewed. ASSESSMENT: 1. Severe anemia, multifactorial including upper GI bleeding, status post esophagogastroduodenoscopy showing multiple superficial ulcerations with nodules. 2. Multiple nodules with superficial ulceration. 3. [id number] portal hypertension, gastropathy involving cardia and fundus of the stomach and esophagogastroduodenoscopy. 4. Small nonbleeding esophageal varices on the esophagogastroduodenoscopy. 5. Pancytopenia secondary to myelodysplastic syndrome, on chemotherapy. 6. Progressively worsening thrombocytopenia, mild. 7. B-cell lymphoma and bleeding gastric ulcer recently at [facility]. 8. Right abdominal wall hematoma secondary to thrombocytopenia, improving. 9. Multiple complex medical issues. RECOMMENDATIONS AND DISCUSSION: Recommend to continue current management and repeat labs. The patient will require platelets and I have discussed with staff. We will get in touch with Hematology, Oncology for the need of further transfusion tonight. Otherwise, repeat labs tomorrow. I would also recommend a portable chest x-ray for complete workup and rule out the possibility of any fluid overload. We will continue to monitor. Guarded prognosis. Further recommendations to follow. MMODL / IJN: [id number] /
[2024-06-14] MEDS ORDERED: HEPARIN SODIUM,PORCINE 5,000 UNIT/ML 1 ML VIAL SQ PRN (05:00)
[2024-06-14] MEDS ORDERED: ACETAMINOPHEN TAB 500 MG TAB PO PRN (05:00)
[2024-06-14 06:35] LABS: Glucose,Whole Blood 127 mg/dL (70-110)
[2024-06-14 06:51] LABS: Anisocytosis Moderate; HCT 22.7 % (39.0-53.0); Hypochromasia Marked; MCH 32.3 pg (25.0-35.0); MCHC 30.3 g/dL (31.0-37.0); MCV 106.6 fL (80.0-100.0); Mean Platelet Volume 9.5; Poikilocytosis Marked; RBC 2.13 m/uL (4.30-5.90); RDW 23.5 % (11.5-15.5)
[2024-06-14 06:55] LABS: African American GFR (CKD) >90 (>60 ml/min/1.73 sqM); Anion Gap 1 mmol/L; Blood Urea Nitrogen 9 mg/dL (9-20); Calcium 7.9 mg/dL (8.4-10.2); Carbon Dioxide 27 mmol/L (22-30); Chloride 108 mmol/L (98-107); Glucose 109 mg/dL (74-99); Non-African American GFR(CKD) >90 (>60 ml/min/1.73 sqM); Potassium 3.9 mmol/L (3.5-5.1); Sodium 136 mmol/L (137-145)
[2024-06-14 07:31] LABS: Polychromasia Present; RBC Fragments Present; Tear Drop Cells Present
[2024-06-14 07:50] LABS: Platelet Count 8 k/uL (150-450); WBC 0.4 k/uL (3.8-10.6)
[2024-06-14 07:51] LABS: HGB 6.9 gm/dL (13.0-17.5); Macrocytosis Marked
[2024-06-14] MEDS: Pre Op ABX Message 1 EACH MISC MISCELLANE ONE (07:51)
--- NOTE | 2024-06-14 11:29 | P.PN ---
Subjective Progress Note Date: 06/14/24 Principal diagnosis: Anemia This is a pleasant 68-year-old male with a history of alcohol liver cirrhosis, chronic anemia, MDS on chemotherapy, and recent bleeding ulcer that was treated at [facility]. Apparently patient was at [facility] [place] admitted with anemia. Reportedly general surgery was consulted however declined to do any endoscopic evaluation due to patient's history of liver cirrhosis and esophageal varices. They were recommending transfer to [facility] however there were no beds available. Patient was transferred here and asked if gastroenterology could see patient for possible endoscopy. He states that he has been having black stools for last several days. He denies any abdominal pain, nausea or vomiting. No hematemesis. WBC 0.3 hemoglobin 7.0 platelet count 16,000 sodium 134 potassium 3.4 BUN 7 creatinine 0.5 total bilirubin 2.7 AST 98 ALT 67 alkaline phosphatase 171 Last EGD and colonoscopy done here was on 09/26/2023 for elective upper endoscopy as well as colonoscopy as part of evaluation of cirrhosis of the liver and screening for esophageal varices and screening for colon cancer. Upper endoscopy revealed severe portal hypertensive gastropathy and small esophageal varices. Colonoscopy revealed transverse colon polyp status post polypectomy and scattered sigmoid diverticulosis 06/14/2024 There was no GI available over the weekend. Patient seen and examined as a follow-up for her anemia. He underwent upper endoscopy on Friday with findings of nodular appearing mucosa in the antrum of the stomach with superficial ulceration with no active bleeding. Moderate to severe portal hypertensive gastropathy involving body cardia and fundus of the stomach, small nonbleeding esophageal varices and no active upper GI bleed. He denies any black stool or blood in his stool. No abdominal pain, nausea or vomiting. Hemoglobin this morning is 6.9 and platelet count 8000. He is currently getting platelets and 1 unit of blood has been ordered. Oncology following closely. Objective - Vital Signs Vital signs: Vital Signs Temp 98.3 F 06/14/24 09:10 Pulse 86 06/14/24 09:10 Resp 16 06/14/24 09:10 BP 119/64 06/14/24 09:10 Pulse Ox 98 06/14/24 08:20 FiO2 Intake & Output 06/13/24 06/14/24 06/14/24 18:59 06:59 18:59 Intake Total 240 500 0 Balance 240 500 0 Weight 88 kg Intake: Oral 240 500 Blood Product 0 Unit 0 Other: Voiding Method Toilet Toilet # Voids 1 1 - Exam General appearance: The patient is alert, oriented, appears in no acute distress. HET: Head is normocephalic and atraumatic. Conjunctiva pink. Sclera anicteric. Neck: Supple without lymphadenopathy. Abdomen: Soft, nontender, nondistended with bowel sounds. No guarding or rigidity. Extremities: Normal skin color and turgor. No pedal edema Skin: No rashes, no jaundice Neurological: No focal deficits. Alert and oriented. - Labs CBC & Chem 7: 06/14/24 06:18 06/14/24 06:18 Labs: Abnormal Lab Results - Last 24 Hours (Table) 06/13/24 06/13/24 06/13/24 Range/Units 11: 16:26 20:26 WBC (3.8-10.6) k/uL RBC (4.30-5.90) m/uL Hgb (13.0-17.5) gm/dL Hct (39.0-53.0) % MCV (80.0-100.0) fL MCHC (31.0-37.0) g/dL RDW (11.5-15.5) % Plt Count (150-450) k/uL Neutrophils # (1.3-7.7) k/uL Lymphocytes # (1.0-4.8) k/uL Macrocytosis Sodium (137-145) mmol/L Chloride (98-107) mmol/L Creatinine (0.66-1.25) mg/dL Glucose (74-99) mg/dL POC Glucose (mg/dL) 177 H 151 H 211 H (70-110) mg/dL Calcium (8.4-10.2) mg/dL Crossmatch 06/14/24 06/14/24 06/14/24 Range/Units 06:18 06:18 06:34 WBC 0.4 L* (3.8-10.6) k/uL RBC 2.13 L (4.30-5.90) m/uL Hgb 6.9 L* (13.0-17.5) gm/dL Hct 22.7 L (39.0-53.0) % MCV 106.6 H (80.0-100.0) fL MCHC 30.3 L (31.0-37.0) g/dL RDW 23.5 H (11.5-15.5) % Plt Count 8 L* (150-450) k/uL Neutrophils # 0.1 L* (1.3-7.7) k/uL Lymphocytes # 0.3 L (1.0-4.8) k/uL Macrocytosis Marked A Sodium 136 L (137-145) mmol/L Chloride 108 H (98-107) mmol/L Creatinine 0.59 L (0.66-1.25) mg/dL Glucose 109 H (74-99) mg/dL POC Glucose (mg/dL) 127 H (70-110) mg/dL Calcium 7.9 L (8.4-10.2) mg/dL Crossmatch 06/14/24 Range/Units 08:09 WBC (3.8-10.6) k/uL RBC (4.30-5.90) m/uL Hgb (13.0-17.5) gm/dL Hct (39.0-53.0) % MCV (80.0-100.0) fL MCHC (31.0-37.0) g/dL RDW (11.5-15.5) % Plt Count (150-450) k/uL Neutrophils # (1.3-7.7) k/uL Lymphocytes # (1.0-4.8) k/uL Macrocytosis Sodium (137-145) mmol/L Chloride (98-107) mmol/L Creatinine (0.66-1.25) mg/dL Glucose (74-99) mg/dL POC Glucose (mg/dL) (70-110) mg/dL Calcium (8.4-10.2) mg/dL Crossmatch See Detail Microbiology - Last 24 Hours (Table) 06/10/24 17:08 Blood Culture - Preliminary Blood Assessment and Plan (1) Anemia Narrative/Plan: 68-year-old male with a history of alcohol liver cirrhosis, recent diagnosis of lymphoma, MDS who is getting chemotherapy currently on hold due to chronic anemia and needing multiple transfusions was transferred here with complaints of black stool. History of recent upper endoscopy with reported bleeding ulcer treated at [facility]. Patient is pancytopenic likely secondary to MDS however is also reporting black stools and need to consider possible upper GI bleed with history of recent peptic ulcer disease. Also need to consider possible variceal bleed secondary to portal hypertension. Upper endoscopy completed without any signs of active GI bleed. Anemia likely secondary to underlying lymphoma Current Visit: Yes Status: Acute Priority: High Code(s): D64.9 - ANEMIA, UNSPECIFIED SNOMED Code(s): 892548165 (2) Thrombocytopenia Narrative/Plan: Platelets ordered. Oncology/hematology following Current Visit: Yes Status: Acute Code(s): D69.6 - THROMBOCYTOPENIA, UNS PECIFIED SNOMED Code(s): 006534384 (3) Pancytopenia Current Visit: Yes Status: Acute Code(s): D61.818 - OTHER PANCYTOPENIA SNOMED Code(s): 664077138 (4) Alcoholic cirrhosis of liver Current Visit: Yes Status: Acute Code(s): K70.30 - ALCOHOLIC CIRRHOSIS OF LIVER WITHOUT ASCITES SNOMED Code(s): 608187612 (5) Melena Narrative/Plan: Resolved Current Visit: Yes Status: Acute Code(s): K92.1 - MELENA SNOMED Code(s): 6213710 Plan: 1. Continue symptomatic and supportive care 2. Daily CBC, transfuse for hemoglobin less than 7 3. Agree with blood transfusion 4. Will add propranolol 10 mg 3 times daily for portal hypertension/gastropathy 5. Continue with recommendations from oncology/hematology Thank you for this consultation, patient can follow-up with gastroenterology as previously scheduled. We will sign off at this time. Dr. Adi Dominguez I agree with the dictator's note, documented as a scribe by Mary Ann Pressley.
[2024-06-14 11:50] LABS: Glucose,Whole Blood 127 mg/dL (70-110)
[2024-06-14 14:41] LABS: Anisocytosis Moderate; HCT 28.4 % (39.0-53.0); Hypochromasia Marked; MCH 32.5 pg (25.0-35.0); MCHC 30.8 g/dL (31.0-37.0); MCV 105.3 fL (80.0-100.0); Macrocytosis Marked; Poikilocytosis Marked; RDW 20.7 % (11.5-15.5)
--- NOTE | 2024-06-14 14:41 | P.PN ---
Subjective Progress Note Date: 06/14/24 SURGICAL PROGRESS NOTE CHIEF COMPLAINT: Anemia HISTORY OF PRESENT ILLNESS: Patient scheduled for more Mediport placement today. Platelets are 8 and hemoglobin 6.9. Patient received platelets and 1 unit of PRBC prior to procedure. No new complaints. PHYSICAL EXAM: VITAL SIGNS: Reviewed. GENERAL: Well-developed in no acute distress. ABDOMEN: Soft. Nondistended. Nontender. ASSESSMENT: 1. Lymphoma and myelodysplastic syndrome 2. Anemia status post EGD 3. Pancytopenia PLAN: -Patient scheduled for Mediport placement today with Dr. Licona Physician Chief Credit Officer note has been reviewed by physician. Signing provider agrees with the documented findings, assessment, and plan of care. Objective - Vital Signs Vital signs: Vital Signs Temp 98.1 F 06/14/24 13:18 Pulse 88 06/14/24 13:18 Resp 18 06/14/24 13:18 BP 136/80 06/14/24 13:18 Pulse Ox 98 06/14/24 13:18 FiO2 Intake & Output 06/13/24 06/14/24 06/14/24 18:59 06:59 18:59 Intake Total 240 500 565 Balance 240 500 565 Weight 88 kg Intake: Oral 240 500 Blood Product 565 Platelet Pheresis Pas 255 Psoralen Unit [id number] Rc Irr As1 Unit 310 [id number] Other: Voiding Method Toilet Toilet Toilet # Voids 1 1 1 - Labs CBC & Chem 7: 06/14/24 06:18 06/14/24 06:18 Labs: Abnormal Lab Results - Last 24 Hours (Table) 06/13/24 06/13/24 06/14/24 Range/Units 16:26 20:26 06:18 WBC 0.4 L* (3.8-10.6) k/uL RBC 2.13 L (4.30-5.90) m/uL Hgb 6.9 L* (13.0-17.5) gm/dL Hct 22.7 L (39.0-53.0) % MCV 106.6 H (80.0-100.0) fL MCHC 30.3 L (31.0-37.0) g/dL RDW 23.5 H (11.5-15.5) % Plt Count 8 L* (150-450) k/uL Neutrophils # 0.1 L* (1.3-7.7) k/uL Lymphocytes # 0.3 L (1.0-4.8) k/uL Macrocytosis Marked A Sodium (137-145) mmol/L Chloride (98-107) mmol/L Creatinine (0.66-1.25) mg/dL Glucose (74-99) mg/dL POC Glucose (mg/dL) 151 H 211 H (70-110) mg/dL Calcium (8.4-10.2) mg/dL Crossmatch 06/14/24 06/14/24 06/14/24 Range/Units 06:18 06:34 08:09 WBC (3.8-10.6) k/uL RBC (4.30-5.90) m/uL Hgb (13.0-17.5) gm/dL Hct (39.0-53.0) % MCV (80.0-100.0) fL MCHC (31.0-37.0) g/dL RDW (11.5-15.5) % Plt Count (150-450) k/uL Neutrophils # (1.3-7.7) k/uL Lymphocytes # (1.0-4.8) k/uL Macrocytosis Sodium 136 L (137-145) mmol/L Chloride 108 H (98-107) mmol/L Creatinine 0.59 L (0.66-1.25) mg/dL Glucose 109 H (74-99) mg/dL POC Glucose (mg/dL) 127 H (70-110) mg/dL Calcium 7.9 L (8.4-10.2) mg/dL Crossmatch See Detail 06/14/24 Range/Units 11:49 WBC (3.8-10.6) k/uL RBC (4.30-5.90) m/uL Hgb (13.0-17.5) gm/dL Hct (39.0-53.0) % MCV (80.0-100.0) fL MCHC (31.0-37.0) g/dL RDW (11.5-15.5) % Plt Count (150-450) k/uL Neutrophils # (1.3-7.7) k/uL Lymphocytes # (1.0-4.8) k/uL Macrocytosis Sodium (137-145) mmol/L Chloride (98-107) mmol/L Creatinine (0.66-1.25) mg/dL Glucose (74-99) mg/dL POC Glucose (mg/dL) 127 H (70-110) mg/dL Calcium (8.4-10.2) mg/dL Crossmatch Microbiology - Last 24 Hours (Table) 06/10/24 17:08 Blood Culture - Preliminary Blood
[2024-06-14 14:49] LABS: HGB 8.8 gm/dL (13.0-17.5); WBC 0.4 k/uL (3.8-10.6)
[2024-06-14 14:50] LABS: Platelet Count 10 k/uL (150-450)
--- NOTE | 2024-06-14 15:23 | P.PN ---
Subjective Progress Note Date: 06/14/24 Principal diagnosis: MDS, on treatment for the same, chemo/disease induced pancytopenia In f/u pt cont to require blood and plt transfusions, he had EGD without significant complications, notable gastric mucosal bleeding. Pt is on mult medications for gastric acid. There are plans for a port with plt running during procedure. Pt does have easy bruising but, he denies any overt bleeding, blood in the stool or urine. Objective - Vital Signs Vital signs: Vital Signs Temp 98.1 F 06/14/24 13:18 Pulse 88 06/14/24 13:18 Resp 18 06/14/24 13:18 BP 136/80 06/14/24 13:18 Pulse Ox 98 06/14/24 13:18 FiO2 Intake & Output 06/13/24 06/14/24 06/14/24 18:59 06:59 18:59 Intake Total 240 500 565 Balance 240 500 565 Weight 88 kg Intake: Oral 240 500 Blood Product 565 Platelet Pheresis Pas 255 Psoralen Unit [id number] Rc Irr As1 Unit 310 [id number] Other: Voiding Method Toilet Toilet Toilet # Voids 1 1 1 - Constitutional General appearance: Present: average body habitus, cooperative, no acute distress - EENT Eyes: Present: anicteric sclerae, EOMI ENT: Present: hearing grossly normal - Respiratory Details: resp even and unlabored - Cardiovascular Details: skin warm and dry, well perfused - Peripheral edema leg Peripheral Edema: bilateral: None - Integumentary Integumentary Comment(s): bruising to the arms - Neurologic Neurologic: Present: CNII-XII intact - Musculoskeletal Musculoskeletal: Present: strength equal bilaterally - Psychiatric Psychiatric: Present: A&O x's 3, appropriate affect, intact judgment & insight - Labs CBC & Chem 7: 06/14/24 14:03 06/14/24 06:18 Labs: Abnormal Lab Results - Last 24 Hours (Table) 06/13/24 06/13/24 06/14/24 Range/Units 16:26 20:26 06:18 WBC 0.4 L* (3.8-10.6) k/uL RBC 2.13 L (4.30-5.90) m/uL Hgb 6.9 L* (13.0-17.5) gm/dL Hct 22.7 L (39.0-53.0) % MCV 106.6 H (80.0-100.0) fL MCHC 30.3 L (31.0-37.0) g/dL RDW 23.5 H (11.5-15.5) % Plt Count 8 L* (150-450) k/uL Neutrophils # 0.1 L* (1.3-7.7) k/uL Lymphocytes # 0.3 L (1.0-4.8) k/uL Macrocytosis Marked A Sodium (137-145) mmol/L Chloride (98-107) mmol/L Creatinine (0.66-1.25) mg/dL Glucose (74-99) mg/dL POC Glucose (mg/dL) 151 H 211 H (70-110) mg/dL Calcium (8.4-10.2) mg/dL Crossmatch 06/14/24 06/14/24 06/14/24 Range/Units 06:18 06:34 08:09 WBC (3.8-10.6) k/uL RBC (4.30-5.90) m/uL Hgb (13.0-17.5) gm/dL Hct (39.0-53.0) % MCV (80.0-100.0) fL MCHC (31.0-37.0) g/dL RDW (11.5-15.5) % Plt Count (150-450) k/uL Neutrophils # (1.3-7.7) k/uL Lymphocytes # (1.0-4.8) k/uL Macrocytosis Sodium 136 L (137-145) mmol/L Chloride 108 H (98-107) mmol/L Creatinine 0.59 L (0.66-1.25) mg/dL Glucose 109 H (74-99) mg/dL POC Glucose (mg/dL) 127 H (70-110) mg/dL Calcium 7.9 L (8.4-10.2) mg/dL Crossmatch See Detail 06/14/24 Range/Units 11:49 WBC (3.8-10.6) k/uL RBC (4.30-5.90) m/uL Hgb (13.0-17.5) gm/dL Hct (39.0-53.0) % MCV (80.0-100.0) fL MCHC (31.0-37.0) g/dL RDW (11.5-15.5) % Plt Count (150-450) k/uL Neutrophils # (1.3-7.7) k/uL Lymphocytes # (1.0-4.8) k/uL Macrocytosis Sodium (137-145) mmol/L Chloride (98-107) mmol/L Creatinine (0.66-1.25) mg/dL Glucose (74-99) mg/dL POC Glucose (mg/dL) 127 H (70-110) mg/dL Calcium (8.4-10.2) mg/dL Crossmatch Microbiology - Last 24 Hours (Table) 06/10/24 17:08 Blood Culture - Preliminary Blood Assessment and Plan (1) GI bleed Current Visit: Yes Status: Acute Priority: High Code(s): K92.2 - GASTROINTESTINAL HEMORRHAGE, UNSPECIFIED SNOMED Code(s): 59029732 (2) Anemia Current Visit: Yes Status: Acute Priority: High Code(s): D64.9 - ANEMIA, UNSPECIFIED SNOMED Code(s): 796351064 (3) MDS (myelodysplastic syndrome) Current Visit: Yes Status: Acute Priority: Medium Code(s): D46.9 - MYELODYSPLASTIC SYNDROME, UNSPECIFIED SNOMED Code(s): 236111344 Plan: Anemia -Multifactorial including GI bleeding because of Hx of varices from ETOH, low plt counts, MDS and treatment for MDS -Pt has received multiple units of blood, platelets and DDAVP -Hgb is fairly stable at this time. Hgb 8.8 after a unit for 6.9. Exaggerated response as drawn short time after transfusion. Cont to transfuse for Hgb < 7 or if symptomatic -Plans for CBC monitoring 3 times a week outpt already planned. Hope to able to transfusion pt outpt -Plt 8, 10,[address] Mensah did want to keep pt plt count up around 15,000 to reduce the risk of bleeding -No acute intervention for low WBC-2/2 treatment -elevated LFTs bili likely was 2/2 multiple units of PRBCs that were transfused at [facility]. No recent CMP, no clinical s/s of liver dysfunction -Dr. Mensah going to discuss case with Rad Onc-may consider palliative treatment to the gastric mucosa to risk of gastric variceal bleeding. MDS RAEB-2 -pt just started treatment last week -Dr. Mensah reviewed with pt the challenges to treatment. Counts are low because of MDS. Treatment of MDS takes times before there will be results showing in the counts. Chemo makes the counts lower temporarily. Liver disease and GI varices further worsen Hgb and platelets. Plan is to treat varices with antihypertensives and PPIs, CBC monitoring three times a week, transfusions PRN. Resume treatment as soon as able. Pt verbalizes understanding his complex medic al conditions adn he agrees with plan at this time. F/U with Dr. Palencia in ofc tomorrow.
[2024-06-14] MEDS: PROPRANOLOL 10 MG TAB PO SCH (15:56)
[2024-06-14 16:12] LABS: Glucose,Whole Blood 119 mg/dL (70-110)
[2024-06-14 20:18] LABS: Glucose,Whole Blood 187 mg/dL (70-110)
[2024-06-14] MEDS: MELATONIN 3 MG TABLET PO PRN (23:08)
--- NOTE | 2024-06-14 23:47 | P.PN ---
Subjective Progress Note Date: 06/14/24 This is a very pleasant 68-year-old male who is recently at [facility] sent over here for GI evaluation along with oncology and general surgery. 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 Platelets were low along with hemoglobin and receiving transfusion. Per nursing staff port placement was canceled due to emergent surgeries and will take place tomorrow. Recommend another unit of platelets and also repeat labs in the a.m. Review of systems: Constitutional: No reports of fatigue, fever, or chills Cardiovascular: No reports of chest pain or palpitations Respiratory: No reports of shortness of breath or cough GI: No reports of nausea, no reports of vomiting, no diarrhea : No reports of dysuria or retention Neurovascular: reports of generalized weakness All medications have been reviewed PHYSICAL EXAMINATION: GENERAL: The patient is alert and oriented x4, Well developed, well nourished. Obese, elderly HEENT: Pupils are round and equally reacting to light. EOMI. no scleral icterus. No conjunctival pallor. Normocephalic, atraumatic. No pharyngeal erythema. No thyromegaly. CARDIOVASCULAR: S1 and S2 muffled PULMONARY: diminished breath sounds bilaterally with no wheezing or rhonchi noted. ABDOMEN: soft. Nontender on exam. obese. non-distended, normoactive bowel sounds. No palpable organomegaly. MUSCULOSKELETAL: No joint swelling or deformity. EXTREMITIES: No cyanosis, clubbing, or pedal edema. NEUROLOGICAL: Gross neurological examination did not reveal any focal deficits. SKIN: No rashes. Assessment: Severe anemia, multifactorial including upper GI bleeding, status post EGD/colonoscopy Multiple nodules with superficial ulceration noted on imaging Moderate to severe portal hypertension, gastro path the involving cardia and fundus of the stomach on EGD Small nonbleeding esophageal varices on the EGD Pancytopenia secondary to MDS, on chemotherapy Progressively worsening thrombocytopenia, mild B-cell lymphoma and bleeding gastric ulcer recently at [facility] Right abdominal wall hematoma secondary to thrombocytopenia, improving Obesity with a BMI 30.4 GI prophylaxis DVT prophylaxis Full code Plan: Recommend to continue with current medications and management with multiple consultations following. GI evaluated the patient underwent EGD/colonoscopy and has cleared the patient for discharge once cleared by other consultations Hematology/oncology following and patient is scheduled to receive a unit of PRBCs as well as platelets. Patient was initially scheduled for Mediport placement today with general surgery although there were 2 emergent cases and Mediport was canceled and concerned of low platelets. Will give another unit of platelets and follow-up with repeat labs N.p.o. at midnight and patient to receive Mediport possibly tomorrow Due to multiple complex medical issues, overall prognosis is extremely guarded at this time Encouraged increase activity as tolerated Possible discharge planning in the next 24 hours The impression and plan of care has been dictated by Lizette Gamez, nurse practitioner as directed. Dr. Jimmie MD I have performed a history and examination and MDM of this patient, discussed the same with the dictator, and agree with the dictator's assessment and plan as written ,documented as a scribe. Based on total visit time, I have performed more than 50% of the visit. Any additional findings or plans will be noted. Objective - Vital Signs Vital signs: Vital Signs Temp 97.7 F 06/14/24 21:53 Pulse 81 06/14/24 23:04 Resp 18 06/14/24 23:04 BP 134/69 06/14/24 23:04 Pulse Ox 99 06/14/24 23:04 FiO2 Intake & Output 06/14/24 06/14/24 06/15/24 06:59 18:59 06:59 Intake Total 500 565 367 Balance 500 565 367 Weight 88 kg Intake: Oral 500 100 Blood Product 565 267 Platelet Pheresis Pas 267 Psoralen Unit [id number] Platelet Pheresis Pas 255 Psoralen Unit [id number] Rc Irr As1 Unit 310 [id number] Other: Voiding Method Toilet Toilet Toilet # Voids 1 2 - Labs CBC & Chem 7: 06/14/24 14:03 06/14/24 06:18 Labs: Abnormal Lab Results - Last 24 Hours (Table) 06/14/24 06/14/24 06/14/24 Range/Units 06:18 06:18 06:34 WBC 0.4 L* (3.8-10.6) k/uL RBC 2.13 L (4.30-5.90) m/uL Hgb 6.9 L* (13.0-17.5) gm/dL Hct 22.7 L (39.0-53.0) % MCV 106.6 H (80.0-100.0) fL MCHC 30.3 L (31.0-37.0) g/dL RDW 23.5 H (11.5-15.5) % Plt Count 8 L* (150-450) k/uL Neutrophils # 0.1 L* (1.3-7.7) k/uL Lymphocytes # 0.3 L (1.0-4.8) k/uL Macrocytosis Marked A Sodium 136 L (137-145) mmol/L Chloride 108 H (98-107) mmol/L Creatinine 0.59 L (0.66-1.25) mg/dL Glucose 109 H (74-99) mg/dL POC Glucose (mg/dL) 127 H (70-110) mg/dL Calcium 7.9 L (8.4-10.2) mg/dL Crossmatch 06/14/24 06/14/24 06/14/24 Range/Units 08:09 11:49 14:03 WBC 0.4 L* (3.8-10.6) k/uL RBC 2.70 L (4.30-5.90) m/uL Hgb 8.8 L D (13.0-17.5) gm/dL Hct 28.4 L (39.0-53.0) % MCV 105.3 H (80.0-100.0) fL MCHC 30.8 L (31.0-37.0) g/dL RDW 20.7 H (11.5-15.5) % Plt Count 10 L* (150-450) k/uL Neutrophils # 0.0 L* (1.3-7.7) k/uL Lymphocytes # 0.4 L (1.0-4.8) k/uL Macrocytosis Marked A Sodium (137-145) mmol/L Chloride (98-107) mmol/L Creatinine (0.66-1.25) mg/dL Glucose (74-99) mg/dL POC Glucose (mg/dL) 127 H (70-110) mg/dL Calcium (8.4-10.2) mg/dL Crossmatch See Detail 06/14/24 06/14/24 Range/Units 16:10 20:16 WBC (3.8-10.6) k/uL RBC (4.30-5.90) m/uL Hgb (13.0-17.5) gm/dL Hct (39.0-53.0) % MCV (80.0-100.0) fL MCHC (31.0-37.0) g/dL RDW (11.5-15.5) % Plt Count (150-450) k/uL Neutrophils # (1.3-7.7) k/uL Lymphocytes # (1.0-4.8) k/uL Macrocytosis Sodium (137-145) mmol/L Chloride (98-107) mmol/L Creatinine (0.66-1.25) mg/dL Glucose (74-99) mg/dL POC Glucose (mg/dL) 119 H 187 H (70-110) mg/dL Calcium (8.4-10.2) mg/dL Crossmatch Microbiology - Last 24 Hours (Table) 06/10/24 17:08 Blood Culture - Preliminary Blood
[2024-06-15 04:25] LABS: Anisocytosis Moderate; HCT 25.4 % (39.0-53.0); HGB 7.9 gm/dL (13.0-17.5); Hypochromasia Marked; MCH 33.3 pg (25.0-35.0); MCHC 31.2 g/dL (31.0-37.0); MCV 106.8 fL (80.0-100.0); Macrocytosis Marked; Mean Platelet Volume 12.2; Poikilocytosis Marked; RBC 2.38 m/uL (4.30-5.90)
[2024-06-15 04:32] LABS: Platelet Count 11 k/uL (150-450)
[2024-06-15 05:59] LABS: Glucose,Whole Blood 154 mg/dL (70-110)
[2024-06-15 06:10] LABS: WBC 0.6 k/uL (3.8-10.6)
[2024-06-15 06:12] LABS: Anisocytosis (M) Present; Mixed Population RBC Present; Polychromasia Present
[2024-06-15 09:01] VITALS: BP 133/78; PULSE 79; RESP 19; TEMP 98
[2024-06-15 11:45] LABS: Glucose,Whole Blood 183 mg/dL (70-110)
--- NOTE | 2024-06-15 13:48 | P.PN ---
Subjective Progress Note Date: 06/15/24 SURGICAL PROGRESS NOTE CHIEF COMPLAINT: Anemia HISTORY OF PRESENT ILLNESS: Mediport not completed yesterday due to patient's thrombocytopenia. Patient did receive more platelets. Platelet count did come up to 11. But platelets are still too low to proceed with port placement. Patient is anxious for discharge. PHYSICAL EXAM: VITAL SIGNS: Reviewed. GENERAL: Well-developed in no acute distress. ABDOMEN: Soft. Nondistended. Nontender. ASSESSMENT: 1. Myelodysplastic syndrome 2. Anemia status post EGD 3. Pancytopenia 4. Lymphoma PLAN: -Due to thrombocytopenia unable to place port at this time -Resume patient's diet -Case discussed with oncology nurse practitioner -Patient can be discharged from surgical standpoint and port placement can be done at a later date when platelets have improved Physician Pharmacist Technician note has been reviewed by physician. Signing provider agrees with the documented findings, assessment, and plan of care. Objective - Vital Signs Vital signs: Vital Signs Temp 98.0 F 06/15/24 08:59 Pulse 79 06/15/24 08:59 Resp 19 06/15/24 08:59 BP 133/78 06/15/24 08:59 Pulse Ox 98 06/15/24 08:59 FiO2 Intake & Output 06/14/24 06/15/24 06/15/24 18:59 06:59 18:59 Intake Total 565 367 Balance 565 367 Weight 88.4 kg Intake: Oral 100 Blood Product 565 267 Platelet Pheresis Pas 267 Psoralen Unit [id number] Platelet Pheresis Pas 255 Psoralen Unit [id number] Rc Irr As1 Unit 310 [id number] Other: Voiding Method Toilet Toilet Toilet # Voids 2 1 - Labs CBC & Chem 7: 06/15/24 04:07 06/14/24 06:18 Labs: Abnormal Lab Results - Last 24 Hours (Table) 06/14/24 06/14/24 06/14/24 Range/Units 14:03 16:10 20:16 WBC 0.4 L* (3.8-10.6) k/uL RBC 2.70 L (4.30-5.90) m/uL Hgb 8.8 L D (13.0-17.5) gm/dL Hct 28.4 L (39.0-53.0) % MCV 105.3 H (80.0-100.0) fL MCHC 30.8 L (31.0-37.0) g/dL RDW 20.7 H (11.5-15.5) % Plt Count 10 L* (150-450) k/uL Neutrophils # 0.0 L* (1.3-7.7) k/uL Lymphocytes # 0.4 L (1.0-4.8) k/uL Macrocytosis Marked A POC Glucose (mg/dL) 119 H 187 H (70-110) mg/dL 06/15/24 06/15/24 06/15/24 Range/Units 04:07 05:57 11:44 WBC 0.6 L* (3.8-10.6) k/uL RBC 2.38 L (4.30-5.90) m/uL Hgb 7.9 L (13.0-17.5) gm/dL Hct 25.4 L (39.0-53.0) % MCV 106.8 H (80.0-100.0) fL MCHC (31.0-37.0) g/dL RDW 21.0 H (11.5-15.5) % Plt Count 11 L* (150-450) k/uL Neutrophils # (1.3-7.7) k/uL Lymphocytes # (1.0-4.8) k/uL Macrocytosis Marked A POC Glucose (mg/dL) 154 H 183 H (70-110) mg/dL
--- NOTE | 2024-06-15 14:39 | P.PN ---
Subjective Progress Note Date: 06/15/24 Principal diagnosis: MDS, on treatment for the same, chemo/disease induced pancytopenia In f/u today pt denies any acute bleeding, no fevers, N,V, he does have an appetite, no acute c/o at this time. Objective - Vital Signs Vital signs: Vital Signs Temp 98.0 F 06/15/24 08:59 Pulse 79 06/15/24 08:59 Resp 19 06/15/24 08:59 BP 133/78 06/15/24 08:59 Pulse Ox 98 06/15/24 08:59 FiO2 Intake & Output 06/14/24 06/15/24 06/15/24 18:59 06:59 18:59 Intake Total 565 367 Balance 565 367 Weight 88.4 kg Intake: Oral 100 Blood Product 565 267 Platelet Pheresis Pas 267 Psoralen Unit [id number] Platelet Pheresis Pas 255 Psoralen Unit [id number] Rc Irr As1 Unit 310 [id number] Other: Voiding Method Toilet Toilet Toilet # Voids 2 1 - Constitutional General appearance: Present: average body habitus, cooperative, no acute distress - EENT Eyes: Present: anicteric sclerae, EOMI ENT: Present: hearing grossly normal - Respiratory Details: resp even and unlabored at rest - Cardiovascular Details: radial pulse 2+, regular - Peripheral edema leg Peripheral Edema: bilateral: None - Integumentary Integumentary: Present: normal turgor, pale - Neurologic Neurologic: Present: CNII-XII intact - Musculoskeletal Musculoskeletal: Present: strength equal bilaterally - Psychiatric Psychiatric: Present: A&O x's 3, appropriate affect, intact judgment & insight - Labs CBC & Chem 7: 06/15/24 04:07 06/14/24 06:18 Labs: Abnormal Lab Results - Last 24 Hours (Table) 06/14/24 06/14/24 06/14/24 Range/Units 08:09 14:03 16:10 WBC 0.4 L* (3.8-10.6) k/uL RBC 2.70 L (4.30-5.90) m/uL Hgb 8.8 L D (13.0-17.5) gm/dL Hct 28.4 L (39.0-53.0) % MCV 105.3 H (80.0-100.0) fL MCHC 30.8 L (31.0-37.0) g/dL RDW 20.7 H (11.5-15.5) % Plt Count 10 L* (150-450) k/uL Neutrophils # 0.0 L* (1.3-7.7) k/uL Lymphocytes # 0.4 L (1.0-4.8) k/uL Macrocytosis Marked A POC Glucose (mg/dL) 119 H (70-110) mg/dL Crossmatch See Detail 06/14/24 06/15/24 06/15/24 Range/Units 20:16 04:07 05:57 WBC 0.6 L* (3.8-10.6) k/uL RBC 2.38 L (4.30-5.90) m/uL Hgb 7.9 L (13.0-17.5) gm/dL Hct 25.4 L (39.0-53.0) % MCV 106.8 H (80.0-100.0) fL MCHC (31.0-37.0) g/dL RDW 21.0 H (11.5-15.5) % Plt Count 11 L* (150-450) k/uL Neutrophils # (1.3-7.7) k/uL Lymphocytes # (1.0-4.8) k/uL Macrocytosis Marked A POC Glucose (mg/dL) 187 H 154 H (70-110) mg/dL Crossmatch 06/15/24 Range/Units 11:44 WBC (3.8-10.6) k/uL RBC (4.30-5.90) m/uL Hgb (13.0-17.5) gm/dL Hct (39.0-53.0) % MCV (80.0-100.0) fL MCHC (31.0-37.0) g/dL RDW (11.5-15.5) % Plt Count (150-450) k/uL Neutrophils # (1.3-7.7) k/uL Lymphocytes # (1.0-4.8) k/uL Macrocytosis POC Glucose (mg/dL) 183 H (70-110) mg/dL Crossmatch Assessment and Plan (1) GI bleed Status: Acute Priority: High Code(s): K92.2 - GASTROINTESTINAL HEMORRHAGE, UNSPECIFIED SNOMED Code(s): 16607964 (2) Anemia Status: Acute Priority: High Code(s): D64.9 - ANEMIA, UNSPECIFIED SNOMED Code(s): 268219101 (3) MDS (myelodysplastic syndrome) Status: Acute Priority: Medium Code(s): D46.9 - MYELODYSPLASTIC SYNDROME, UNSPECIFIED SNOMED Code(s): 581484857 Plan: Anemia -Multifactorial including GI bleeding because of Hx of varices from ETOH, low plt counts, MDS, and treatment for MDS -Pt has received multiple units of blood, platelets and DDAVP -Hgb is fairly stable at this time. Hgb 7.9 today after a unit for 6.9. Plan is to transfuse for Hgb < 7 or if symptomatic in the outpt setting -CBC monitoring 3 times a week sched -Plt 11,000 today after [address] Mensah did want to keep pt plt count up around 15,000 to reduce the risk of bleeding but, this is proving to be very challenging despite multiple transfusions. Again, pt will be transfused aggressively outpt -No acute intervention for low WBC-2/2 treatment/disease -elevated LFTs bili likely was 2/2 multiple units of PRBCs that were transfused at [facility]. Labs slightly better yesterday, no clinical s/s of liver dysfunction -Dr. Mensah going to discuss case with Rad Onc-may consider palliative treatment to the gastric mucosa to risk of gastric variceal bleeding. MDS RAEB-2 -pt just started treatment last week -Dr. Mensah reviewed with pt the challenges to treatment. Counts are low because of MDS. Treatment of MDS takes times before there will be results showing in the counts. Chemo makes the counts lower temporarily. Liver disease and GI varices further worsen Hgb and platelets (acute losses from bleeding). Plan is to treat varices with antihypertensives and PPIs, CBC monitoring three times a week, transfusions PRN. Resume treatment as soon as able. Pt verbalizes understanding his complex medical conditions and he agrees with plan at this time. F/U CBC and appt with Dr. Mensah in ofc tomorrow. -Post could not be placed due to low plt counts. Plan to set something up outpt- will transfuse platelets at time of procedure (PICC vs port). D/W Surgeon
--- NOTE | 2024-06-18 10:16 | P.DS ---
Providers Date of admission: 06/09/24 16:25 Expected date of discharge: 06/15/24 Attending physician: Melquiades Samuel Consults: 06/09/24 16:54 Consult Physician Urgent Consulting Provider: Mahi Dominguez Consult Reason/Comments: anemia, endoscopy? Do you want consulting provider notified?: Yes 06/09/24 17:52 Consult Physician Routine Consulting Provider: Luis Mensah Consult Reason/Comments: MDS, anemia Do you want consulting provider notified?: Yes, Notify in am 06/10/24 12:04 Consult Physician Routine Consulting Provider: Ino Licona Consult Reason/Comments: patient supposed to get port friday, anemic, possible place while here Do you want consulting provider notified?: Yes Primary care physician: Darien Corona Hospital Course: Final diagnosis Severe anemia, multifactorial including upper GI bleeding, status post EGD/colonoscopy Multiple nodules with superficial ulceration noted on imaging Moderate to severe portal hypertension, gastro path the involving cardia and fundus of the stomach on EGD Small nonbleeding esophageal varices on the EGD Pancytopenia secondary to MDS, on chemotherapy Progressively worsening thrombocytopenia, mild B-cell lymphoma and bleeding gastric ulcer recently at [facility] Right abdominal wall hematoma secondary to thrombocytopenia, improving Obesity with a BMI 30.4 GI prophylaxis DVT prophylaxis Full code Discharge disposition Patient is being discharged in a stable condition with guarded prognosis to home. Patient will follow-up with Dr. Corona in the outpatient setting upon discharge. Patient is to continue with close outpatient follow-up with oncology as scheduled. Discussed Mediport placement versus PICC outpatient. Total time taken is greater than 35 minutes. Hospital course This is a 68-year-old male who was recently admitted with severe anemia multifactorial status post EGD/colonoscopy with GI. Oncology along with general surgery following as patient remained hospitalized to receive a port although continued to have significantly low platelets currently at 11 and no immediate plans for port placement. Oncology discussing with general surgery regarding PICC line versus port placement with transfusion in the outpatient setting. Patient to follow-up with oncology on discharge and also repeat labs in the a.m. in the office. Patient has been cleared by consultations for discharge and would like to go home. Please refer to other consultation notes for further HPI. Currently no reports of chest pain, shortness of breath, or palpitations. Patient is afebrile. No reports of nausea or vomiting and patient is tolerating diet. Patient will be discharged home today. Extremely guarded prognosis Physical exam: Gen: This is a 68-year-old male who is awake, alert and oriented x 3, well- developed, elderly appearing, obese HEENT: Head is atraumatic, normocephalic. Pupils equal, round. Sclerae is anicteric. NECK: Supple. No JVD. No lymphadenopathy. No thyromegaly. LUNGS: Diminished breath sounds bilaterally otherwise clear to auscultation. No wheezes or rhonchi. No intercostal retractions. HEART: Regular rate and rhythm. No murmur. ABDOMEN: Soft. Obese bowel sounds are present. No masses. No tenderness. EXTREMITIES: No pedal edema. No calf tenderness. NEUROLOGICAL: Patient is awake, alert and oriented x3. Cranial nerves 2 through 12 are grossly intact. Please refer to medication reconciliation sheet for a list of medications. The impression and plan of care has been dictated by Lizette Gamez, Nurse Practitioner as directed. Dr. Jimmie MD I have performed a history and examination and MDM of this patient, discussed the same with the dictator, and agree with the dictator's assessment and plan as written ,documented as a scribe. Based on total visit time, I have performed more than 50% of the visit. Patient Condition at Discharge: Fair Plan - Discharge Summary Discharge Rx Participant: No New Discharge Prescriptions: New Sucralfate [Carafate] 1 gm PO ACHS #120 tab Propranolol [Inderal] 10 mg PO TID #90 tab Continue allopurinoL [Zyloprim] 300 mg PO DAILY@0900 Fluconazole [Diflucan] 100 mg PO DAILY@1500 Ondansetron [Zofran] 4 - 8 mg PO Q4H PRN PRN Reason: Nausea Pantoprazole [Protonix] 40 mg PO BID@0900,2100 Tamsulosin [Flomax] 0.4 mg PO HS@2100 ALPRAZolam [Xanax] 0.25 mg PO TID PRN PRN Reason: Anxiety Ciprofloxacin HCl [Cipro] 500 mg PO DAILY@1500 Folic Acid 1 mg PO DAILY@1500 Mv-Min/Folic/K1/Lycopen/Lutein [Centrum Silver Men Tablet] 1 tab PO HS@2100 Temazepam [Restoril] 15 mg PO HS@2100 Thiamine [Vitamin B-1] 100 mg PO DAILY@0900 Discharge Medication List ALPRAZolam [Xanax] 0.25 mg PO TID PRN 06/09/24 [History] Ciprofloxacin HCl [Cipro] 500 mg PO DAILY@149906/09/24 [History] Fluconazole [Diflucan] 100 mg PO DAILY@149906/09/24 [History] Folic Acid 1 mg PO DAILY@149906/09/24 [History] Mv-Min/Folic/K1/Lycopen/Lutein [Centrum Silver Men Tablet] 1 tab PO HS@209906/09/24 [History] Ondansetron [Zofran] 4 - 8 mg PO Q4H PRN 06/09/24 [History] Pantoprazole [Protonix] 40 mg PO BID@899,209906/09/24 [History] Tamsulosin [Flomax] 0.4 mg PO HS@209906/09/24 [History] Temazepam [Restoril] 15 mg PO HS@209906/09/24 [History] Thiamine [Vitamin B-1] 100 mg PO DAILY@0906/09/24 [History] allopurinoL [Zyloprim] 300 mg PO DAILY@0906/09/24 [History] Propranolol [Inderal] 10 mg PO TID #90 tab 06/14/24 [Rx] Sucralfate [Carafate] 1 gm PO ACHS #120 tab 06/14/24 [Rx] Follow up Appointment(s)/Referral(s): Darien Corona [Primary Care Provider] - 1 Week Luis Mensah [STAFF PHYSICIAN] - 1 Week Mahi Dominguez MD [STAFF PHYSICIAN] - 1 Week Activity/Diet/Wound Care/Special Instructions: Activity limited until follow-up Follow-up with primary care provider on discharge Follow-up with GI outpatient Follow-up with oncology outpatient Discharge Disposition: HOME SELF-CARE
== END 2024-06-15 13:16 | disposition home or self-care (01) | DRG 808 ==
LOC: 3SCARD 16:25
PROVIDERS: ADMIT Hospitalist; ATTEND Hospitalist
PROC: 0DJ08ZZ Inspection of Upper Intestinal Tract, Via Natural or Artificial Opening Endoscopic (ICD-10-PCS; principal; 2024-06-11 07:00)
DX: D61.810 Antineoplastic chemotherapy induced pancytopenia (principal); K25.4 Chronic or unspecified gastric ulcer with hemorrhage; C85.13 Unspecified B-cell lymphoma, intra-abdominal lymph nodes; E87.1 Hypo-osmolality and hyponatremia; I85.10 Secondary esophageal varices without bleeding; K76.6 Portal hypertension; T45.1X5A Adverse effect of antineoplastic and immunosuppressive drugs, initial encounter; E66.9 Obesity, unspecified; E87.6 Hypokalemia; K05.10 Chronic gingivitis, plaque induced; I10 Essential (primary) hypertension; K31.89 Other diseases of stomach and duodenum; Z86.0100 Personal history of colon polyps, unspecified; Z87.11 Personal history of peptic ulcer disease; K70.30 Alcoholic cirrhosis of liver without ascites; M19.90 Unspecified osteoarthritis, unspecified site; N40.0 Benign prostatic hyperplasia without lower urinary tract symptoms; Z68.30 Body mass index [BMI] 30.0-30.9, adult; Z79.899 Other long term (current) drug therapy; Z85.828 Personal history of other malignant neoplasm of skin; Z87.891 Personal history of nicotine dependence; Z79.85 Long-term (current) use of injectable non-insulin antidiabetic drugs; Z28.310 Unvaccinated for COVID-19; Z88.8 Allergy status to other drugs, medicaments and biological substances
CPT/HCPCS: 43235; 71045; 80048; 80053; 83036; 83735; 85025; 85610; 86850; 86900; 86901; 86920; 87040

== ENCOUNTER 2024-07-01 06:02 | Day surgery (SDC) | payer MEDICARE ==
[2024-06-29 16:03] VITALS: BMI 31.3
[2024-07-01 07:18] LABS: Anisocytosis Moderate; HCT 22.9 % (39.0-53.0); Hypochromasia Marked; MCH 29.9 pg (25.0-35.0); MCHC 30.1 g/dL (31.0-37.0); Macrocytosis Moderate; Mean Platelet Volume 9.4; Poikilocytosis Marked; RDW 22.3 % (11.5-15.5)
[2024-07-01 07:25] LABS: HGB 6.9 gm/dL (13.0-17.5)
[2024-07-01 07:26] LABS: MCV 99.5 fL (80.0-100.0)
[2024-07-01 07:31] LABS: African American GFR (CKD) >90 (>60 ml/min/1.73 sqM); Anion Gap 3 mmol/L; Blood Urea Nitrogen 17 mg/dL (9-20); Calcium 7.4 mg/dL (8.4-10.2); Carbon Dioxide 25 mmol/L (22-30); Chloride 104 mmol/L (98-107); Glucose 181 mg/dL (74-99); Non-African American GFR(CKD) >90 (>60 ml/min/1.73 sqM); Potassium 3.7 mmol/L (3.5-5.1); Sodium 132 mmol/L (137-145)
[2024-07-01 07:48] LABS: Anisocytosis (M) Present; Hypochromasia (M) Present; Poikilocytosis (M) Present
[2024-07-01 07:54] LABS: WBC 0.4 k/uL (3.8-10.6)
[2024-07-01 07:55] LABS: Platelet Count 10 k/uL (150-450)
[2024-07-01 09:48] VITALS: RESP 16
[2024-07-01 11:14] VITALS: TEMP 98.9
[2024-07-01 15:12] VITALS: BP 141/68; PULSE 88
== END 2024-07-01 11:10 | disposition home or self-care (01) ==
LOC: CATHCVL 06:02
PROVIDERS: ATTEND Internal Medicine Hematology & Oncology
DX: D46.22 Refractory anemia with excess of blasts 2 (principal)
CPT/HCPCS: 36573; 86900; 86901; 80048; 85025; 86850; 86920; P9016; P9073

== ENCOUNTER 2024-07-05 15:09 | Emergency (ER) | payer MEDICARE ==
--- NOTE | 2024-07-05 16:10 | ED ---
Fall HPI - General Chief Complaint: Fall Stated Complaint: Fall-dizziness Time Seen by Provider: 07/05/24 16:07 Source: patient, family, RN/MD, RN notes reviewed Mode of arrival: wheelchair - History of Present Illness Initial Comments: 68-year-old male with history of myelodysplastic syndrome presenting for fever and fall. Patient had a mechanical fall with injury to head upstairs during blood transfusion appointment. States he was walking to the bathroom when his legs gave out and believes he fell onto his right side. Denies loss of consciousness. Patient also has been having foul urine odor and believes he may have a UTI. Patient regularly receives Friday, Friday, and Friday. Patient states he had a headache initially after fall, however denies any curre nt headaches or vision changes. Denies blood thinners. reports patient has been lightheaded and weak since yesterday. Is not currently on antibiotics. Past medical history includes cirrhosis. - Related Data Home Medications Medication Instructions Recorded Confirmed ALPRAZolam [Xanax] 0.25 mg PO TID PRN 06/09/24 07/05/24 Ciprofloxacin HCl [Cipro] 500 mg PO DAILY@1500 06/09/24 07/05/24 Fluconazole [Diflucan] 100 mg PO DAILY@1500 06/09/24 07/05/24 Folic Acid 1 mg PO DAILY@1500 06/09/24 07/05/24 Mv-Min/Folic/K1/Lycopen/Lutein 1 tab PO HS@209906/09/24 07/05/24 [Centrum Silver Men Tablet] Ondansetron [Zofran] 4 - 8 mg PO Q4H PRN 06/09/24 07/05/24 Pantoprazole [Protonix] 40 mg PO BID@0900,209906/09/24 07/05/24 Tamsulosin [Flomax] 0.4 mg PO HS@209906/09/24 07/05/24 Temazepam [Restoril] 15 mg PO HS@209906/09/24 07/05/24 Thiamine [Vitamin B-1] 100 mg PO DAILY@0900 06/09/24 07/05/24 allopurinoL [Zyloprim] 300 mg PO DAILY@0900 06/09/24 07/05/24 Previous Rx's Medication Instructions Recorded Propranolol [Inderal] 10 mg PO TID #90 tab 06/14/24 Sucralfate [Carafate] 1 gm PO ACHS #120 tab 06/14/24 Allergies Allergy/AdvReac Type Severity Reaction Status Date / Time finasteride [From Proscar] AdvReac Swelling Verified 07/05/24 15:16 Review of Systems ROS Statement: Those systems with pertinent positive or pertinent negative responses have been documented in the HPI. ROS Other: All systems not noted in ROS Statement are negative. Past Medical History Past Medical History: Cancer, Hypertension Additional Past Medical History / Comment(s): Cirrhosis of liver, skin cancer. Low platelets-follows with Dr. Allen, BPH, cyst removed from tooth, Myleopastic Dysplasia Syndrome. History of Any Multi-Drug Resistant Organisms: None Reported Past Surgical History: Prostate Surgery Additional Past Surgical History / Comment(s): green light laser surgery for prostate, colonoscopy, EGD. Past Anesthesia/Blood Transfusion Reactions: No Reported Reaction Past Psychological History: No Psychological Hx Reported Smoking Status: Former smoker Past Alcohol Use History: None Reported Past Drug Use History: None Reported - Past Family History Sister(s) Family Medical History: Cancer Additional Family Medical History / Comment(s): one sister breast cancer, 2nd sister having testing done. General Exam Limitations: physical limitation General appearance: alert, in no apparent distress Head exam: Present: atraumatic, normocephalic, normal inspection Eye exam: Present: PERRL, EOMI, scleral icterus. Absent: conjunctival injecti on, periorbital swelling Respiratory exam: Present: normal lung sounds bilaterally. Absent: respiratory distress, wheezes, rales, rhonchi, stridor Cardiovascular Exam: Present: regular rate, normal rhythm, normal heart sounds. Absent: systolic murmur, diastolic murmur, rubs, gallop, clicks GI/Abdominal exam: Present: distended. Absent: tenderness Neurological exam: Present: alert, oriented X3, CN II-XII intact Psychiatric exam: Present: normal affect, normal mood Skin exam: Present: warm, dry, intact, normal color. Absent: rash Course Vital Signs 07/05/24 07/05/24 07/05/24 15:16 17:26 17:59 Temperature 102.5 F H 101.8 F H Pulse Rate 118 H 92 Respiratory 36 H 15 Rate Blood Pressure 143/67 127/63 O2 Sat by Pulse 99 98 97 Oximetry Medical Decision Making - Medical Decision Making Was pt. sent in by a medical professional or institution (, PA, FIRE RANGE TECHNICIAN, urgent care, hospital, or fdc...) When possible be specific @ -No Did you speak to anyone other than the patient for history (EMS, parent, family, police, friend...)? What history was obtained from this source @ - supplemented history Did you review nursing and triage notes (agree or disagree)? Why? @ -I reviewed and agree with nursing and triage notes Were old charts reviewed (outside hosp., previous admission, EMS record, old EKG, old radiological studies, urgent care reports/EKG's, fdc records)? Report findings @ -No old charts were reviewed Differential Diagnosis (chest pain, altered mental status, abdominal pain women, abdominal pain men, vaginal bleeding, weakness, fever, dyspnea, syncope, headache, dizziness, GI bleed, back pain, seizure, CVA, palpatations, mental health, musculoskeletal)? @ -Differential Fever: Intracranial hemorrhage, skull fracture, concussion, pneumonia, viral URI, endocarditis, myocarditis, pericarditis, otitis, sinusitis, peritonsillar Abscess, retropharyngeal Abscess, epiglottitis, peritonitis, appendicitis, Abbey cystitis, diverticulitis, hepatitis, colitis, UTI, PID, TOA, pyelonephritis, prostatitis, epididymitis, meningitis, encephalitis, pulmonary embolism, CVA, thyroid storm, pancreatitis, adrenal crisis, cavernous sinus thrombosis, this is not meant to be an all-inclusive list. EKG interpreted by me (3pts min.). @ -As above X-rays interpreted by me (1pt min.). @ -Chest x-ray reveals no acute process CT interpreted by me (1pt min.). @ -CT brain reveals acute intracranial hemorrhage with subdural hemorrhage tracking along the right calvarium with mild mass effect right cerebrum, CT abdomen pelvis reveals new ascites in setting of hepatic cirrhosis U/S interpreted by me (1pt. min.). @ -None done What testing was considered but not performed or refused? (CT, X-rays, U/S, labs)? Why? @ -None What meds were considered but not given or refused? Why? @ -None Did you discuss the management of the patient with other professionals (professionals i.e. , PA, FIRE RANGE TECHNICIAN, lab, RT, psych nurse, social worker psychiatric, credentials specialist, teacher, plain clothes police officer, housing case manager)? Give summary @ -I spoke with transfer team at [facility] who accepts transfer for acute subdural hemorrhage Was smoking cessation discussed for >3mins.? @ -No Was critical care preformed (if so, how long)? @ -Yes, 45 minutes Were there social determinants of health that impacted care today? How? (Homelessness, low income, unemployed, alcoholism, drug addiction, transportation, low edu. Level, literacy, decrease access to med. care, intermediate, rehab)? @ -No Was there de-escalation of care discussed even if they declined (Discuss DNR or withdrawal of care, Hospice)? DNR status @ -No What co-morbidities impacted this encounter? (DM, HTN, Smoking, COPD, CAD, Cancer, CVA, ARF, Chemo, Hep., AIDS, mental health diagnosis, sleep apnea, morbid obesity)? @ -None Was patient admitted / discharged? Hospital course, mention meds given and route, prescriptions, significant lab abnormalities, going to OR and other pertinent info. @ -Transferred. This is a 68-year-old male with history of myelodysplastic syndrome presenting to the ER for mechanical fall with head injury and fever. Patient is febrile at 102.5, tachycardic at 118 bpm, respiratory rate 36, blood pressure stable at 143 over 67, satting 99% on room air. GCS 15. Patient started on IV fluids, antibiotics, and antipyretics for likely septic UTI. Lab work remarkable for platelets 11, white blood cell count 0.6, lactic 2.8. Platelets ordered at this time. CT brain reveals acute intracranial hemorrhage with subdural hemorrhage tracking along the right calvarium with mild mass effect on the right cerebrum. I spoke with transfer team at [facility] who accepts transfer for acute subdural hemorrhage. Case was discussed with my ED attending Dr. Peterson. Undiagnosed new problem with uncertain prognosis? @ -No Drug Therapy requiring intensive monitoring for toxicity (Heparin, Nitro, Insulin, Cardizem)? @ -No Were any procedures done? @ -No Diagnosis/symptom? @ -Acute intracranial hemorrhage, sepsis Acute, or Chronic, or Acute on Chronic? @ -Acute Uncomplicated (without systemic symptoms) or Complicated (systemic symptoms)? @ -Complicated Side effects of treatment? @ -No Exacerbation, Progression, or Severe Exacerbation? @ -No Poses a threat to life or bodily function? How? (Chest pain, [place], [place], pneumonia, PE, COPD, DKA, ARF, appy, cholecystitis, CVA, Diverticulitis, Homicidal, Suicidal, threat to staff... and all critical care pts) @ -Yes - Lab Data Result diagrams: 07/05/24 16:20 07/05/24 16:20 Lab Results 07/05/24 07/05/24 07/05/24 Range/Units 16:20 16:20 16:20 WBC 0.6 L* (3.8-10.6) k/uL RBC 2.86 L (4.30-5.90) m/uL Hgb 8.6 L D (13.0-17.5) gm/dL Hct 26.9 L (39.0-53.0) % MCV 94.2 D (80.0-100.0) fL MCH 30.1 (25.0-35.0) pg MCHC 31.9 (31.0-37.0) g/dL RDW 21.2 H (11.5-15.5) % Plt Count 11 L* (150-450) k/uL MPV 7.6 Differential Comment Hypochromasia Marked Poikilocytosis Marked Anisocytosis Moderate Macrocytosis Slight PT 11.8 (10.0-12.5) sec INR 1.1 (<1.2) APTT 26.0 (22.0-30.0) sec Sodium 131 L (137-145) mmol/L Potassium 4.1 (3.5-5.1) mmol/L Chloride 105 (98-107) mmol/L Carbon Dioxide 19 L (22-30) mmol/L Anion Gap 7 mmol/L BUN 18 (9-20) mg/dL Creatinine 0.57 L (0.66-1.25) mg/dL Est GFR (CKD-EPI)AfAm >90 (>60 ml/min/1.73 sqM) Est GFR (CKD-EPI)NonAf >90 (>60 ml/min/1.73 sqM) Glucose 168 H (74-99) mg/dL Plasma Lactic Acid Abad (0.7-2.0) mmol/L Calcium 7.8 L (8.4-10.2) mg/dL Total Bilirubin 6.1 H (0.2-1.3) mg/dL AST 56 (17-59) U/L ALT 28 (4-49) U/L Alkaline Phosphatase 162 H (38-126) U/L Total Protein 5.0 L (6.3-8.2) g/dL Albumin 2.6 L (3.5-5.0) g/dL Urine RBC (0-5) /hpf Urine WBC (0-5) /hpf Ur Squamous Epith Cells (0-4) /hpf 07/05/24 07/05/24 Range/Units 16:20 17:48 WBC (3.8-10.6) k/uL RBC (4.30-5.90) m/uL Hgb (13.0-17.5) gm/dL Hct (39.0-53.0) % MCV (80.0-100.0) fL MCH (25.0-35.0) pg MCHC (31.0-37.0) g/dL RDW (11.5-15.5) % Plt Count (150-450) k/uL MPV Differential Comment Hypochromasia Poikilocytosis Anisocytosis Macrocytosis PT (10.0-12.5) sec INR (<1.2) APTT (22.0-30.0) sec Sodium (137-145) mmol/L Potassium (3.5-5.1) mmol/L Chloride (98-107) mmol/L Carbon Dioxide (22-30) mmol/L Anion Gap mmol/L BUN (9-20) mg/dL Creatinine (0.66-1.25) mg/dL Est GFR (CKD-EPI)AfAm (>60 ml/min/1.73 sqM) Est GFR (CKD-EPI)NonAf (>60 ml/min/1.73 sqM) Glucose (74-99) mg/dL Plasma Lactic Acid Abad 2.8 H* (0.7-2.0) mmol/L Calcium (8.4-10.2) mg/dL Total Bilirubin (0.2-1.3) mg/dL AST (17-59) U/L ALT (4-49) U/L Alkaline Phosphatase (38-126) U/L Total Protein (6.3-8.2) g/dL Albumin (3.5-5.0) g/dL Urine RBC 1 (0-5) /hpf Urine WBC 1 (0-5) /hpf Ur Squamous Epith Cells <1 (0-4) /hpf - EKG Data -: EKG Interpreted by Me EKG Comments: EKG reveals sinus tachycardia with no ST changes. Ventricular rate 117 bpm, NC interval 173, QRS duration 88, QT/QTc 325/397 Disposition Clinical Impression: Acute intracranial hemorrhage, Sepsis Disposition: OTHER INSTITUTION NOT DEFINED Referrals: Darien Corona [Primary Care Provider] - 1-2 days Time of Disposition: 18:43 - Out of Hospital Transfer - Req. Specs Out of Hospital Transfer - Requested Specifics: Other Emergency Center ([facility])
[2024-07-05] MEDS: ACETAMINOPHEN IV (For NPO) 1,000 MG in EMPTY BAG 1 BAG IVPB STA (16:30)
[2024-07-05] MEDS: SODIUM CHLORIDE 0.9% 1,000 ML IV STA (16:30)
[2024-07-05] MEDS: SODIUM CHLORIDE 0.9% 500 ML 500 ML IV STA (16:34)
[2024-07-05 16:39] LABS: Anisocytosis Moderate; HCT 26.9 % (39.0-53.0); Hypochromasia Marked; MCH 30.1 pg (25.0-35.0); MCHC 31.9 g/dL (31.0-37.0); MCV 94.2 fL (80.0-100.0); Macrocytosis Slight; Mean Platelet Volume 7.6; Poikilocytosis Marked; RBC 2.86 m/uL (4.30-5.90); RDW 21.2 % (11.5-15.5)
[2024-07-05 16:46] LABS: ALT 28 U/L (4-49); AST 56 U/L (17-59); African American GFR (CKD) >90 (>60 ml/min/1.73 sqM); Albumin 2.6 g/dL (3.5-5.0); Alkaline Phosphatase 162 U/L (38-126); Anion Gap 7 mmol/L; Blood Urea Nitrogen 18 mg/dL (9-20); Calcium 7.8 mg/dL (8.4-10.2); Carbon Dioxide 19 mmol/L (22-30); Chloride 105 mmol/L (98-107); Glucose 168 mg/dL (74-99); Non-African American GFR(CKD) >90 (>60 ml/min/1.73 sqM); Potassium 4.1 mmol/L (3.5-5.1); Sodium 131 mmol/L (137-145); Total Bilirubin 6.1 mg/dL (0.2-1.3)
[2024-07-05 16:48] LABS: INR 1.1 (<1.2); Prothrombin Time 11.8 sec (10.0-12.5)
[2024-07-05 16:49] LABS: HGB 8.6 gm/dL (13.0-17.5); Platelet Count 11 k/uL (150-450); WBC 0.6 k/uL (3.8-10.6)
--- NOTE | 2024-07-05 18:01 | CT ---
EXAMINATION TYPE: CT brain cspine wo con DATE OF EXAM: 07/05/2024 5:29 PM COMPARISON: None. CLINICAL INDICATION: Male, 68 years old with history of pain; pain after fall TECHNIQUE: Brain: Multiple axial CT images of the brain were obtained without IV contrast. Cspine: Axial CT images from the skull base to the inferior aspect of T2 we obtained without intraven ous contrast. Coronal and sagittal reformatted images were also reviewed. . CT DLP: 1395 mGycm, Automated exposure control for dose reduction was used. FINDINGS: Brain: Extra-axial spaces: High density fluid/blood products extend along the right cerebrum with mild compr ession of the right cerebral hemisphere. Layering blood product also along the tentorium also present . There is effacement of the right lateral ventricle. Ventricular system: Within normal limits Cerebral parenchyma: No acute intraparenchymal hemorrhage or mass effect. The davis-white junction is well differentiated. Cerebellum: Unremarkable. Mass effect: No evidence of midline shift. Intracranial vasculature: unremarkable Soft tissues: Normal. Calvarium/osseous structures: No depressed skull fracture. Paranasal sinuses and mastoid air cells: Mild scattered mucosal thickening and or secretions. Visualized orbits: Orbital contents are intact. Cervical spine: Fracture: None. Osseous structures: Multilevel degenerative disc disease changes with endplate spurring and disc oste ophyte complex's. Vertebral alignment: Within normal limits. Spinal canal/Neural Foramina: No evidence of significant spinal canal narrowing. No evidence for sign ificant neural foraminal stenosis. Neck soft tissues: Prevertebral soft tissues are within normal limits. Other: The airway is patent. The lung apices are clear. IMPRESSION: 1. Acute intracranial hemorrhage with subdural hemorrhage tracking along the right calvarium with mi ld mass effect upon the right cerebrum. 2. No evidence of cervical spine fracture. 3. Mild multilevel degenerative disc disease. Findings communicated to Dr. Suzanne Henderson, PAC on 07/05/2024 5:[address] Edison Key. [facility], , 07/05/2024 5:58 PM
--- NOTE | 2024-07-05 18:01 | XR ---
EXAMINATION TYPE: XR chest 2V DATE OF EXAM: 07/05/2024 5:50 PM COMPARISON: Chest radiographs from 06/13/2024 CLINICAL INDICATION: Male, 68 years old with history of fever; TECHNIQUE: XR chest 2V Frontal and lateral views of the chest. FINDINGS: Lungs/Pleura: There is no evidence of pleural effusion, focal consolidation, or pneumothorax. Pulmonary vascularity: Unremarkable. Heart/mediastinum: Cardiomediastinal silhouette is unremarkable. Musculoskeletal: No acute osseous pathology. IMPRESSION: No acute cardiopulmonary disease/process. [facility], , 07/05/2024 5:59 PM
--- NOTE | 2024-07-05 18:11 | CT ---
EXAMINATION TYPE: CT abdomen pelvis wo con DATE OF EXAM: 07/05/2024 5:29 PM COMPARISON: MRI 09/09/2022 CLINICAL INDICATION: Male, 68 years old with history of distended; abdominal pain and distention TECHNIQUE: Axial CT abdomen pelvis wo con;Sagittal and coronal reformats were created on a separate workstation. Contrast used: mL of , (none if empty) Oral contrast used: without Oral Contrast (none if empty) CT DLP: 1158.4 mGycm, Automated exposure control for dose reduction was used. FINDINGS: LOWER CHEST: Unremarkable ABDOMEN LIVER: Nodular contour to liver. No suspicious masses definitively visualized. GALLBLADDER AND BILE DUCTS: Unremarkable. PANCREAS: Unremarkable. SPLEEN: Enlarged measuring up to 16r centimeters in greatest dimension. ADRENAL GLANDS: Indeterminate left adrenal nodule measuring up to 17 mm and on the right adrenal nodu le measuring 20 mm compatible with lipid rich adrenal adenoma.. KIDNEYS AND URETERS: No evidence of hydronephrosis or renal calculus. The ureters are unremarkable. PELVIS BLADDER: No evidence for wall thickening or mass given limitations of exam. REPRODUCTIVE: Coarse calcifications of the prostate gland are identified. ABDOMEN & PELVIS STOMACH AND BOWEL: No evidence of bowel obstruction. Scattered colonic diverticula.r PERITONEUM/RETROPERITONEUM: No evidence of pneumoperitoneum. Trace free fluid throughout the abdomen. VASCULATURE: No evidence of aortic aneurysm. MUSCULOSKELETAL: No acute osseous abnormalities LYMPH NODES: No gross evidence for lymphadenopathy. SOFT TISSUE/ABDOMINAL WALL: Fatty changes in the inguinal canal no herniated definitively visualized. Anasarca of the soft tissues noted. IMPRESSION: 1. New ascites in the setting of hepatic cirrhosis with small ascites and evidence of portal hyperte nsion with splenomegaly. Correlate with serum markers. Correlate for decompensation liver failure. 2. Colonic diverticulosis. 3. Stable for size adrenal nodules bilaterally, on the right compatible with lipid rich adrenal anmol cheryle on the left or indeterminate based on prior MRI imaging 09/09/2022. [facility], , 07/05/2024 6:08 PM
[2024-07-05 18:19] LABS: RBC,Urine 1 /hpf (0-5); Squamous Epithelial Cell,Urine <1 /hpf (0-4); WBC,Urine 1 /hpf (0-5)
[2024-07-05 18:41] LABS: Appearance,Urine Clear (Clear); Color,Urine Light Orange; Specific Gravity,Urine 1.027 (1.001-1.035)
[2024-07-05 18:42] LABS: Bilirubin,Urine 1+ (Negative); Blood,Urine Negative (Negative); Glucose,Urine (UA) Negative (Negative); Ketones,Urine Negative (Negative); Leukocyte Esterase,Urine Negative (Negative); Nitrite,Urine Negative (Negative); Protein,Urine Trace (Negative)
[2024-07-05 18:58] VITALS: BP 141/70; PULSE 91; RESP 18; TEMP 101.1
== END 2024-07-05 18:57 | disposition other institution (70) ==
LOC: EC 15:09
DX: A41.9 Sepsis, unspecified organism (principal); K57.30 Diverticulosis of large intestine without perforation or abscess without bleeding; Z87.891 Personal history of nicotine dependence; Z88.8 Allergy status to other drugs, medicaments and biological substances
CPT/HCPCS: 36415; 93005; 80053; 83605; 85025; 85610; 85730; 81003; 87040; 87636; 71046; 72125; 70450; 74176; 99291; 96365; 96368; 96361; J0696; J0131